=== PATIENT | female | born 1945 | race Caucasian/White ===

== ENCOUNTER 2017-01-25 10:10 | Emergency (ER) | payer SELFPAY ==
[2017-01-25 10:22] VITALS: TEMP 97.8; BMI 16.8
--- NOTE | 2017-01-25 11:24 | PDOC ---
History of Present Illness - General Chief Complaint: Pain Stated Complaint: SOB/ABDOMINAL PAIN Time Seen by Provider: 01/25/17 11:10 - History of Present Illness Initial Comments: 01/25/17 11:33 71 yo F with h/o HTN, HLD, and hypothyroidism who presents with abdominal pain. Daughter at bedside to assist in report. Patient reports ongoing epigastric/ substernal pain with radiation to periumbilical region for the past month. Pain occurring intermittently and lasting for minutes. States that abdominal pain asx. with transient episodes of lightheadedness, without LOC. Also endorses left sided chest pain/pressure for 2 months with associated left arm weakness occurring intermittently. Pain with no identifiable triggers. Complains of decreased appetite, 20 Ib wt. loss in two months, and nausea. Denies F/C, dysuria, hematuria, diarrhea, BPR. Recently returns from [facility] after 6 months on (12/26/16). Daughter reports pt. lives in [place] but was caring for her mother. Denies h/o MS, stent, CABG. Denies h/o CVA/TIA. Denies h/ o DVT/PE, malignancy, recent trauma, or recent surgery. Past History - Past Medical History Allergies/Adverse Reactions: Allergies Allergy/AdvReac Type Severity Reaction Status Date / Time No Known Allergies Allergy Verified 01/25/17 10:22 Home Medications: Ambulatory Orders Levothyroxine [Synthroid -] 50 mcg PO DAILY 01/25/17 Lisinopril [Prinivil] 20 mg PO DAILY 01/25/17 COPD: No HTN: Yes Thyroid Disease: Yes Other medical history: GLAUCOMA - Suicide/Smoking/Psychosocial Hx Smoking History: Never smoked Hx Alcohol Use: No Drug/Substance Use Hx: No Substance Use Type: None Review of Systems - Review of Systems Comments:: 01/25/17 11:23 GENERAL/CONSTITUTIONAL: No fever or chills. No weakness. HEAD, EYES, EARS, NOSE AND THROAT: No change in vision. No ear pain or discharge. No sore throat.- CARDIOVASCULAR: + Chest pain and Shortness of Breath RESPIRATORY: No cough, wheezing, or hemoptysis. GASTROINTESTINAL:+ nausea, vomiting, diarrhea or constipation. GENITOURINARY: No dysuria, frequency, or change in urination. MUSCULOSKELETAL: No joint or muscle swelling or pain. No neck or back pain. SKIN: No rash NEUROLOGIC: + lightheadedness. No headache, vertigo, loss of consciousness, or change in strength/sensation. ENDOCRINE: No increased thirst. No abnormal weight change HEMATOLOGIC/LYMPHATIC: No anemia, easy bleeding, or history of blood clots. ALLERGIC/IMMUNOLOGIC: No hives or skin allergy. *Physical Exam - Vital Signs Last Vital Signs Temp Pulse Resp BP Pulse Ox 97.8 F 98 H 20 157/94 100 01/25/17 10:17 01/25/17 10:17 01/25/17 10:17 01/25/17 10:01/25/17 10:17 - Physical Exam Comments: 01/25/17 11:23 GENERAL: Awake, alert, and fully oriented, in no acute distress HEAD: No signs of trauma, normocephalic, atraumatic EYES: PERRLA, EOMI, sclera anicteric, conjunctiva clear ENT: Hearing grossly normal, nares patent, oropharynx clear without exudates. Moist mucosa NECK: Normal ROM, no JVD, or masses LUNGS: No distress, speaks full sentences, clear to auscultation bilaterally HEART: Regular rate and rhythm, normal S1 and S2, no murmurs, rubs or gallops, peripheral pulses normal and equal bilaterally. ABDOMEN: Soft, diffusely and mildly ttp. Normoactive bowel sounds. No guarding , no rebound. No masses. Neg CVA ttp. EXTREMITIES : Normal inspection, Normal range of motion, no edema. No clubbing or cyanosis. NEUROLOGICAL: Cranial nerves II through XII grossly intact. Normal speech, normal gait, no focal sensorimotor deficits SKIN: Warm, Dry, normal turgor, no rashes or lesions noted. ED Treatment Course - LABORATORY CBC & Chemistry Diagram: 01/25/17 12:10 01/25/17 12:10 - RADIOLOGY Radiograph Interpretation: 01/25/17 16:19 CT AP:. No evidence of bowel obstruction or acute diverticulitis. Normal appendix. 2. Prominent rectal wall may be secondary to underdistention, although a nonspecific proctitis cannot be excluded, requiring clinical correlation. 3. Copious stool throughout the colon. Please correlate for constipation. 4. Numerous hypoattenuating lesions throughout the liver the majority of which are too small to characterize, statistically likely to represent multiple hepatic cysts. 5. Moderate distention of the gallbladder may be physiologic. No CT evidence of acute cholecystitis or biliary ductal dilatation. Please correlate clinically. 6. Nonspecific 2.5 x 1.5 cm left adnexal cystic lesion can be assessed to better advantage with nonemergent pelvic sonogram. Medical Decision Making - Medical Decision Making 01/25/17 11:51 71 yo F with h/o HTN, HLD, and hypothyroidism who presents with ongoing and intermittent epigastric/substernal pain with radiation to periumbilical region for the past month. Asx w/ transient episodes of lightheadedness, without LOC. Also endorses left sided chest pain/pressure for 2 months with associated left arm weakness occurring intermittently. Complains of decreased appetite, 20 Ib wt. loss in two months, and nausea. Denies F/C, dysuria, hematuria, diarrhea, BPR. Recently returns from [facility] after 6 months on (12/26/16). Denies h/o MS, stent, CABG. Denies h/o CVA/TIA. Physical exam reveals malnourished appearing and hemodynamically stable. Will evaluate for electrolyte imbalance and possible infection. Also will consider malignancy in setting of recent and rapid wt. loss vs ACS/MS with complaint of chest pain and arm heaviness. ED Course: CBC, CMP, Lipase, Lactate, Trop, BNP UA, EKG, CXR 01/25/17 12:41 EKG: NSR with absent CAMERON, STD, or TWI. WBC: 2.4 with elevated monocyte count on diff. 01/25/17 13:00 CT AP W/CON 01/25/17 13:07 CXR: No acute pathology 01/25/17 16:17 CT AP:. No evidence of bowel obstruction or acute diverticulitis. Copious stool throughout the colon. Please correlate for constipation. Numerous hypoattenuating lesions throughout the liver the majority of which are too small to characterize, statistically likely to represent multiple hepatic cysts. Nonspecific 2.5 x 1.5 cm left adnexal cystic lesion can be assessed to better advantage with nonemergent pelvic sonogram. Patient stable and abdominal pain improved. Patient is currently stable and will discharge with return precautions. Pt. is advised to f/u with PCP for fruther eval for CT findings. CT findings discussed with patient. *DC/Admit/Observation/Transfer Diagnosis at time of Disposition: Constipation Qualifiers: Constipation type: unspecified constipation type Qualified Code(s): K59.00 - Constipation, unspecified - Discharge Dispostion Disposition: HOME Condition at time of disposition: Stable Admit: No - Referrals Referrals: Anton Kern MD [Staff Physician] - - Patient Instructions Printed Discharge Instructions: DI for Constipation Additional Instructions: Please return to the emergency department with any new or worsening symptoms or concerns. Please follow up with primary care doctor within one week. - Post Discharge Activity - Attestations Physician Attestion: 01/25/17 16:22 I attest to the information provided in this note.
--- NOTE | 2017-01-25 11:46 | PDOC ---
Attending Attestation - Resident Resident Name: Kang Orourke - ED Attending Attestation I have performed the following: I have examined & evaluated the patient, The case was reviewed & discussed with the resident, I agree w/resident's findings & plan, Exceptions are as noted - HPI HPI: 01/25/17 11:40 71yo F hx HTN, HLD, and hypothyroidism who presents with epigastric abdominal pain radiating to periumbilical area for 1 month. Abd pain a/w lightheadness.Pt also reports 20lbs weight loss in 2 months. Pt also reports LSCP intemrittently at rest for the last 2 weeks that increasing in frequency. Pt returned from 12/25 after 6 month visit to take care of her ill family members. Denies any focal weakness or numbness, headaches, cough, fevers, chills, dysuria, lower extremity edema. - Physicial Exam PE: 01/25/17 11:51 GENERAL: Awake, alert, and fully oriented, in no acute distress. Very thin, and cachectic. HEAD: No signs of trauma EYES: PERRLA, EOMI, sclera anicteric, conjunctiva clear ENT: Auricles normal inspection, hearing grossly normal, nares patent, oropharynx clear without exudates. Moist mucosa NECK: Normal ROM, supple, no lymphadenopathy, JVD, or masses LUNGS: Breath sounds equal, clear to auscultation bilaterally. No wheezes, and no crackles HEART: Regular rate and rhythm, normal S1 and S2, no murmurs, rubs or gallops ABDOMEN: Soft, +periumbilical ttp, normoactive bowel sounds. No guarding, no rebound. No masses EXTREMITIES: Normal range of motion, no edema. No clubbing or cyanosis. No cords, erythema, or tenderness NEUROLOGICAL: Normal speech, cranial nerves intact, negative pronator drift, 5/ 5 strength in all 4 extremities, normal sensation to light touch in all 4 extremities, normal cerebellar exam, normal gait, normal reflexes and tone SKIN: Warm, Dry, normal turgor, no rashes or lesions noted. - Medical Decision Making 01/25/17 11:55 71-year-old female presents with 1 month of abdominal pain associated with chest pain and unintentional weight loss. Differential is wide and includes but not limited to malignancy versus ACS versus infection vs pancreatitis. Plan: -labs -UA -CTAP -CXR -EKG -reassess 01/25/17 16:32 Labs remarkable for leukopenia, absolute neutrophil count is 600. Otherwise labs unremarkable. UA is negative for infection. CT scan of the abdomen and pelvis with no acute findings however CT does note multiple hypoattenuating lesions on the liver and a ovarian cyst. In the context of a 20 pound unintentional weight loss, the findings on the CT scan were discussed with the patient and her daughter. We advised her to follow up with a primary care doctor as these lesions could be a sign of cancer. The patient currently denies any abdominal pain and feels well. We will provide her with a primary care doctor follow-up for further workup of these lesions. I discussed the physical exam findings, ancillary test results and final diagnoses with the patient. I answered all of the patient's questions. The patient was satisfied with the care received and felt comfortable with the discharge plan and treatment plan. The patient will call their primary care physician within 24 hours to arrange follow-up and will return to the Emergency Department with any new, persistent or worsening symptoms. Heart Score/ECG Review #1 01/25/17 12:20 Twelve-lead EKG was performed and reviewed by me. Normal sinus rhythm, rate 80. Normal axis and intervals. No ST elevations or T-wave inversions.
[2017-01-25 12:17] LABS: BASO % 1.5 % (0-2.0); EOS % 1.5 % (0-4.5); MCH 28.4 pg (25.7-33.7); MCHC 32.2 g/dl (32.0-36.0); MEAN CELL VOLUME 88.3 fl (80-96); MEAN PLT VOLUME 8.8 fl (7.5-11.1); NEUT % 24.8 % (42.8-82.8); PLATELET COUNT 176 K/MM3 (134-434); RDW 13.7 % (11.6-15.6); WHITE BLOOD COUNT 2.4 K/mm3 (4.0-10.0)
[2017-01-25 12:35] LABS: INR 1.1 (0.82-1.09); PROTHROMBIN TIME (PATIENT) 12.4 SEC (9.98-11.88)
[2017-01-25 12:48] LABS: ANION GAP 3 (8-16); BILIRUBIN,TOTAL 0.6 mg/dL (0.2-1.0); CALCIUM 9.4 mg/dL (8.5-10.1); CO2 29 mmol/L (21-32); CREATININE 0.6 mg/dL (0.55-1.02); GLUCOSE,RANDOM 88 mg/dL (74-106); SGOT/AST 19 U/L (15-37); SGPT/ALT 21 U/L (12-78)
[2017-01-25 12:50] LABS: CPK 60 IU/L (26-192); TROPONIN I < 0.02 ng/ml (0.00-0.05)
[2017-01-25 12:50] LABS: ALK PHOS 51 U/L (45-117); TOT PROT 7.5 g/dl (6.4-8.2)
[2017-01-25 13:27] LABS: URINE APPEARANCE CLEAR; URINE BILIRUBIN NEGATIVE (NEGATIVE); URINE BLOOD NEGATIVE (NEGATIVE); URINE COLOR STRAW; URINE GLUCOSE (UA) NEGATIVE (NEGATIVE); URINE KETONE NEGATIVE (NEGATIVE); URINE LEUK ESTERASE NEGATIVE (NEGATIVE); URINE NITRITE NEGATIVE (NEGATIVE); URINE PROTEIN NEGATIVE (NEGATIVE); URINE UROBILINOGEN NEGATIVE mg/dL (0.2-1.0)
[2017-01-25 16:10] VITALS: BP 140/87; PULSE 82
[2017-01-25 20:27] LABS: URINE LEUK ESTERASE Negative (NEGATIVE)
--- NOTE | 2017-01-27 01:34 | EKG ---
Test Reason : Blood Pressure : / mmHG Vent. Rate : 080 BPM Atrial Rate : 080 BPM P-R Int : 150 ms QRS Dur : 088 ms QT Int : 360 ms P-R-T Axes : 076 070 055 degrees QTc Int : 415 ms NORMAL SINUS RHYTHM NORMAL ECG NO PREVIOUS ECGS AVAILABLE Confirmed by CARLOS A CANNON MD ([id number]) on 01/27/2017 1:33:52 AM Referred By: Confirmed By:CARLOS A CANNON MD
== END 2017-01-25 16:30 | disposition home or self-care (01) ==
LOC: JER 10:10
DX: K59.00 Constipation, unspecified (principal); I10 Essential (primary) hypertension; E78.00 Pure hypercholesterolemia, unspecified; E03.9 Hypothyroidism, unspecified; R63.4 Abnormal weight loss; Z68.1 Body mass index [BMI] 19.9 or less, adult
CPT/HCPCS: 36415; 71010-TC; 74177-TC; 80053; 81003; 82550; 83605; 83690; 83880; 84484; 85025; 85610; 93005; 93010; 99284-25

== ENCOUNTER 2019-08-27 19:35 | Inpatient (IN) | payer OTHER ==
--- NOTE | 2019-08-27 19:42 | PDOC ---
Rapid Medical Evaluation Time Seen by Provider: 08/27/19 19:39 Medical Evaluation: Allergies Allergy/AdvReac Type Severity Reaction Status Date / Time No Known Allergies Allergy Verified 07/23/19 16:30 08/27/19 19:40 I have performed a brief in-person evaluation of this patient. The patient presents with a chief complaint of: Continued FTT, c/o anorexia, weakness and abd discomfort x 1 month. H/o HTN, HLD, dementia, CVA. Was recently admitted for AMS and tx for UTI per daughter. During admission, had unremarkable ECHO/brain MRI/MRA and carotid dopplers per notes. Daughter also states a possible tick was removed from pt's leg few days ago after being in place for ? 3 weeks. No rash Pertinent physical exam findings:NAD, stable I have ordered the following:labs including lyme serology The patient will proceed to the ED for further evaluation. 08/27/19 19:45 Discharge Disposition - Diagnosis FTT (failure to thrive) in adult - Referrals - Patient Instructions - Post Discharge Activity
--- NOTE | 2019-08-27 19:54 | PDOC ---
History of Present Illness - General Chief Complaint: Pain Stated Complaint: TICK BITE/ FAILURE TO THRIVE Time Seen by Provider: 08/27/19 19:39 - History of Present Illness Initial Comments: 74 YOF h/o HTN, dementia, and hypothyroidism presents with ams and failure to thrive of 2 weeks duration in the context of possible recent lyme exposure. Per patients daughter, patient was admitted for ams in the context of UTI in early july. She recovered but it took 2 weeks to return to baseline. One week ago patient began to become altered again as manifested by speaking less, eating less, appearing somnolent as well as reporting some nausea and abdominal pain. Approximately 3 weeks ago patients daughter observed new "mole" on patients inner thigh which one 3 days ago, on closer inspection was revealed to be a tick. Yesterday patient was initiated on course of doxycycline to treat possible lyme infection. In the context of a suspected lyme infection and the patients behavioral changes the daughter decided to bring her to the ED for evaluation. Patient denies CP, SOB, V/D, fever or chills. Past History - Medical History Allergies/Adverse Reactions: Allergies Allergy/AdvReac Type Severity Reaction Status Date / Time No Known Allergies Allergy Verified 07/23/19 16:30 Home Medications: Ambulatory Orders Levothyroxine [Synthroid -] 50 mcg PO DAILY 01/25/17 Clopidogrel Bisulfate [Plavix] 75 mg PO DAILY 07/23/19 Memantine HCl 10 mg PO DAILY 07/23/19 Pregabalin 75 mg PO DAILY PRN 07/23/19 Losartan Potassium 50 mg PO DAILY 07/24/19 Aspirin [ASA -] 81 mg PO DAILY #30 tab.chew 07/26/19 Atorvastatin Ca [Lipitor] 80 mg PO HS #30 tablet 07/26/19 Cefuroxime Axetil [Ceftin -] 250 mg PO BID #5 tablet 07/26/19 Donepezil HCl [Aricept] 5 mg PO DAILY 08/27/19 COPD: No HTN: Yes Thyroid Disease: Yes - Psycho-Social/Smoking History Smoking History: Never smoked Have you smoked in the past 12 months: No - Substance Abuse Hx (Audit-C & DAST Scrn) How often the patient has a drink containing alcohol: Never Score: In Men: 4 or > Positive; In Women: 3 or > Positive: 0 Screen Result (Pos requires Nsg. Audit-10AR): Negative Review of Systems - Review of Systems Is the patient limited Bhutanese proficient: Yes Constitutional: Yes: See HPI HEENTM: Yes: See HPI Respiratory: Yes: See HPI Cardiac (ROS): Yes: See HPI ABD/GI: Yes: See HPI : Yes: See HPI Musculoskeletal: Yes: See HPI Integumentary: Yes: See HPI Neurological: Yes: See HPI Endocrine: Yes: See HPI Hematologic/Lymphatic: Yes: See HPI *Physical Exam - Vital Signs Last Vital Signs Temp Pulse Resp BP Pulse Ox 98.7 F 73 20 168/91 99 08/27/19 19:40 08/27/19 19:40 08/27/19 19:40 08/27/19 19:40 08/27/19 19:40 - Physical Exam General Appearance: Yes: Cachetic, Thin Respiratory/Chest: positive: Lungs Clear, Normal Breath Sounds Cardiovascular: positive: Regular Rhythm, Regular Rate, S1, S2 Gastrointestinal/Abdominal: positive: Normal Bowel Sounds, Flat, Soft ED Treatment Course - LABORATORY CBC & Chemistry Diagram: 08/27/19 21:13 08/27/19 21:13 Medical Decision Making - Medical Decision Making 74 YOF h/o HTN, dementia, and hypothyroidism presents with ams and failure to thrive of 2 weeks duration in the context of possible recent lyme exposure. Per patients daughter, patient was admitted for ams in the context of UTI in early july. She recovered but it took 2 weeks to return to baseline. One week ago patient began to become altered again as manifested by speaking less, eating less, appearing somnolent as well as reporting some nausea and abdominal pain. Approximately 3 weeks ago patients daughter observed new "mole" on patients inner thigh which one 3 days ago, on closer inspection was revealed to be a tick. Yesterday patient was initiated on course of doxycycline to treat possible lyme infection. In the context of a suspected lyme infection and the patients behavioral changes the daughter decided to bring her to the ED for evaluation. Patient denies CP, SOB, V/D, fever or chills. Patients vitals were stable on arrival, physical exam was unremarkable. ddx includes but is not limited to: UTI, NPH, CVA, failure to thrive, lymes dise ase. plan: CT head w/o contrast, CT abdomen and pelvis without contrast, CXR, CBC, CMP, UA/UC, lyme serology, TSH. Reasses: labs wnl, CXR, CT head, CT abdomen and pelvis wnl. dispo: admit patient for AMS Discharge - Discharge Information Problems reviewed: Yes Clinical Impression/Diagnosis: FTT (failure to thrive) in adult - Admission Yes - Follow up/Referral - Patient Discharge Instructions - Post Discharge Activity
[2019-08-27 20:56] LABS: EPI CELLS 11 /uL (0-25.1); HYALINE CASTS 1 /uL (0-3.1); PH,URINE 7.5 (5.0-8.0); URINE APPEARANCE CLEAR; URINE BACTERIA 54 /uL (0-1359); URINE BILIRUBIN NEGATIVE (NEGATIVE); URINE COLOR YELLOW; URINE GLUCOSE (UA) NEGATIVE (NEGATIVE); URINE KETONE NEGATIVE (NEGATIVE); URINE LEUK ESTERASE TRACE (NEGATIVE); URINE NITRITE NEGATIVE (NEGATIVE); URINE PROTEIN NEGATIVE (NEGATIVE); URINE RBC 46 /uL (0-23.9); URINE WBC 17 /uL (0-25.8)
--- NOTE | 2019-08-27 21:43 | PDOC ---
Documentation entered by Mely Parks SCRIBE, acting as scribe for Steven Fuentes MD. Steven Fuentes MD: This documentation has been prepared by the Kasey yoon Sydney, SCRIBE, under my direction and personally reviewed by me in its entirety. I confirm that the documentation accurately reflects all work, treatment, procedures, and medical decision making performed by me. Attending Attestation - Resident Resident Name: JavierCullen - ED Attending Attestation I have performed the following: I have examined & evaluated the patient, The case was reviewed & discussed with the resident, I agree w/resident's findings & plan, Exceptions are as noted - HPI HPI: 08/27/19 20:31 Patient is a 74 year old female with a significant past medical history of HTN, dementia who presents to the ED with two weeks of progressively worsening weakness and lethargy. As per the patient's daughter, she was seen for similar symptoms in July, was admitted into the hospital for a UTI, and discharged after four days. Patients daughter notes that the patient improved but never fully returned to her baseline. Patient had been going to physical therapy, which also seemed to improved her mental status. Within the last two weeks, she has not been answering questions, talking, or eating normally. She has also complained intermittently of abdominal pain. Not having as many bowel movements. Pt's family also reports they found a tick on the patient's leg. Allergies: NKDA - Physicial Exam PE: 08/27/19 21:44 See resident exam - Medical Decision Making 08/27/19 21:44 74 F with weakness, lethargy. Will evaluate for infectious process, as pt had UTI previously when she presented with similar symptoms. Will also check for Lyme given recent tick bite. - Labs, trop - CXR, UA - CT head 08/28/19 00:01 UA with likely UTI Labs otherwise unremarkable CXR and CTs wnl Will admit for UTI + AMS Discharge - Discharge Information Problems reviewed: Yes Clinical Impression/Diagnosis: FTT (failure to thrive) in adult - Follow up/Referral - Patient Discharge Instructions - Post Discharge Activity
[2019-08-27 21:52] LABS: BASO % 0.9 % (0-2.0); EOS % 0.8 % (0-4.5); HEMATOCRIT 43.2 % (32.4-45.2); HEMOGLOBIN 14.3 GM/dL (10.7-15.3); LYMPH % 43.8 % (8-40); MCH 29.9 pg (25.7-33.7); MCHC 33.1 g/dl (32.0-36.0); MEAN CELL VOLUME 90.2 fl (80-96); MEAN PLT VOLUME 9.5 fl (7.5-11.1); MONO % 7.2 % (3.8-10.2); NEUT % 47.3 % (42.8-82.8); PLATELET COUNT 217 K/MM3 (134-434); RBC 4.79 M/mm3 (3.60-5.2); RDW 13.1 % (11.6-15.6); WHITE BLOOD COUNT 3.3 K/mm3 (4.0-10.0)
[2019-08-27] MEDS ORDERED: CEFTRIAXONE 1 GM in DEXTROSE 5%-WATER - 50 ML IVPB ONE (22:18)
[2019-08-27 22:30] LABS: ALBUMIN 4.7 g/dl (3.4-5.0); ALK PHOS 63 U/L (45-117); ANION GAP 8 MMOL/L (8-16); BILIRUBIN,TOTAL 0.7 mg/dL (0.2-1); BLOOD UREA NITROGEN 7.5 mg/dL (7-18); CALCIUM 10.4 mg/dL (8.5-10.1); CHLORIDE 102 mmol/L (98-107); CO2 29 mmol/L (21-32); CREATININE 0.8 mg/dL (0.55-1.3); GLUCOSE,RANDOM 132 mg/dL (74-106); LIPASE 152 U/L (73-393); POTASSIUM 3.9 mmol/L (3.5-5.1); SGOT/AST 19 U/L (15-37); SGPT/ALT 24 U/L (13-61); SODIUM 138 mmol/L (136-145); TOT PROT 8.9 g/dl (6.4-8.2)
--- NOTE | 2019-08-27 23:25 | PN ---
Teaching Attending Note Name of Resident: Yobani Negron ATTENDING PHYSICIAN STATEMENT I saw and evaluated the patient. I reviewed the resident's note and discussed the case with the resident. I agree with the resident's findings and plan as documented. SUBJECTIVE: Patient is a 74 year old woman with a PMH of HTN, Dementia and Hypothyroidism w ho presents with AMS and failure to thrive of 2 weeks duration in the context of possible recent lyme exposure. Per patients daughter, patient was admitted for AMS and UTI in early July 2019. She recovered but it took 2 weeks to return to baseline. One week ago patient began to become altered again as manifested by speaking less, eating less, appearing somnolent as well as reporting some nausea and abdominal pain. Patient's daughter recently observed a new lesion on patient's inner thigh which on closer inspection was revealed to be a tick. Yesterday patient was initiated on course of doxycycline to treat possible Lyme infection. Patient denies chest pain, shortness of breath, abdominal pain, headache, palpitations, dizziness, fever, chills, nausea, vomiting, diarrhea, constipation, dysuria, frequency, urgency, melena, hematochezia or hematuria. Denies alcohol, tobacco or illicit drug use. No sick contacts or recent travels. Family history is unremarkable. OBJECTIVE: Somnolent but arousable Vital Signs Period Temp Pulse Resp BP Sys/Montes Pulse Ox Last 24 Hr 98.7 F 73-78 18-20 167-168/78-91 99-99 HEENT: No Jaundice, eye redness or discharge, PERRLA, EOMI. Normocephalic, atraumatic. External ears are normal and hearing is grossly intact. No nasal discharge. Neck: Supple, nontender. No palpable adenopathy or thyromegaly. No JVD Chest: Good effort. Clear to auscultation and percussion. Heart: Regular. No S3, rub or murmur Abdomen: Not distended, soft, nontender and no HSM. No rebound or guarding. Normal bowel sounds. Ext: Peripheral pulses intact. No leg edema. Skin: Warm and dry. No petechiae, rash or ecchymosis. Neuro: Somnolent but arousable. Oriented to person. CN 2-12 grossly intact. Sensation grossly intact in all four extremities and DTR are symmetric. Psych: Unable to assess. Home Medications Medication Instructions Recorded Levothyroxine [Synthroid -] 50 mcg PO DAILY 01/25/17 Clopidogrel Bisulfate [Plavix] 75 mg PO DAILY 07/23/19 Memantine HCl 10 mg PO DAILY 07/23/19 Pregabalin 75 mg PO DAILY PRN 07/23/19 Losartan Potassium 50 mg PO DAILY 07/24/19 Aspirin [ASA -] 81 mg PO DAILY #30 tab.chew 07/26/19 Atorvastatin Ca [Lipitor] 80 mg PO HS #30 tablet 07/26/19 Cefuroxime Axetil [Ceftin -] 250 mg PO BID #5 tablet 07/26/19 Donepezil HCl [Aricept] 5 mg PO DAILY 08/27/19 Abnormal Lab Results 08/27/19 08/27/19 21:13 21:13 WBC 3.3 L Lymphocytes % 43.8 H Random Glucose 132 H Calcium 10.4 H Total Protein 8.9 H Current Medications Generic Name Dose Route Start Last Admin Trade Name Freq PRN Reason Stop Dose Admin Acetaminophen 650 mg 08/28/19 01:40 Tylenol - PO Q4H PRN PAIN LEVEL 1 - 3 Aspirin 81 mg 08/28/19 10:00 Asa - PO DAILY VALERIY Atorvastatin Calcium 80 mg 08/28/19 22:00 Lipitor - PO HS VALERIY Donepezil HCl 5 mg 08/28/19 10:00 Aricept - PO DAILY VALERIY Enoxaparin Sodium 40 mg 08/28/19 10:00 Lovenox - SQ DAILY VALERIY Sodium Chloride 1,000 mls @ 83 mls/hr 08/28/19 01:45 08/28/19 02:14 Normal Saline - IV 83 mls/hr ASDIR VALERIY Administration Doxycycline Hyclate 100 mg/ 100 mls @ 100 mls/hr 08/28/19 10:00 Dextrose IVPB BID VALERIY Levothyroxine Sodium 50 mcg 08/28/19 10:00 Synthroid - PO DAILY VALERIY Losartan Potassium 50 mg 08/28/19 10:00 Cozaar - PO DAILY VALERIY Pantoprazole Sodium 40 mg 08/28/19 10:00 Protonix - PO DAILY VALERIY ASSESSMENT AND PLAN: 1. Altered mental status/Dementia/Rule out Lyme disease - Declining cognitive function associated with dementia may explain her symptoms. Head CT, CT abdomen/pelvis and CXR didnot reveal any acute abnormality. Lyme studies have been sent and urinalysis shows hematuria, similar to urine findings during her last admission. Urine culture grew E.coli during her last admission. She was e valuated by Neurology for declining cognitive function which has been attributed to dementia. Recent work up during the last admission including speech and swallow evaluation, carotid doppler, brain MRI, head CT, TSH, and vitamin b12/folate levels were normal. COVID-19 and Syphilis tests were negative. Will continue Doxycycline, treat with IV Ceftriaxone and reconsult Neurology and ID. Will hydrate gently with IV NS, do neurochecks and implement seizure, fall and aspiration precautions. Viral testing for COVID-19 ordered and patient placed on airborne, droplet and contact isolation. EKG shows NSR at 71/minute and QTc [address]-T wave changes. Initial troponin is negative. Will continue comprehensive care for all of patients comorbid conditions. 2. Hypertension Will restart suitable outpatient antihypertensive drugs when clinically appropriate. Subsequently, will revise regimen to ensure [id number] excellent BP control. Patient counseled on the injurious effects of uncontrolled hypertension. Nonpharmacologic measures to control hypertension like weight loss, salt restriction and exercise stressed. Importance of adherence to treatment regimen and attainment of normotension emphasized. 3. DVT prophylaxis - Lovenox 40 mg SQ q 24 hours. 4. Advance directives - Full code
[2019-08-27] MEDS ORDERED: CEFTRIAXONE 1 GM/50 ML BAG ONE (23:43)
[2019-08-28] MEDS: SODIUM CHLORIDE 1,000 ML IV SCH (02:14)
[2019-08-28] MEDS ORDERED: PANTOPRAZOLE 40 MG TABLET ONE (06:28)
[2019-08-28] MEDS ORDERED: LEVOTHYROXINE NA 25 MCG TABLET (FP) ONE (06:28)
[2019-08-28] MEDS: PANTOPRAZOLE 40 MG TABLET PO SCH (06:37)
[2019-08-28] MEDS: LEVOTHYROXINE NA 50 MCG TABLET (FP) PO SCH (06:37)
[2019-08-28 07:16] LABS: HEMOGLOBIN 11.8 GM/dL (10.7-15.3); MCH 29.5 pg (25.7-33.7); MCHC 32.8 g/dl (32.0-36.0); MEAN CELL VOLUME 89.9 fl (80-96); MEAN PLT VOLUME 9.2 fl (7.5-11.1); PLATELET COUNT 182 K/MM3 (134-434); WHITE BLOOD COUNT 3.6 K/mm3 (4.0-10.0)
--- NOTE | 2019-08-28 07:36 | HP ---
CHIEF COMPLAINT: Severe fatigue PCP: HISTORY OF PRESENT ILLNESS: 74 year old female patient with past medical history that includes HTN, HLD, Hypothyroidism, and Dementia, who presented to the ED with severe fatigue and weakness and severe depression. A couple weeks ago, the patient returned from outside the country, where she had visited a family member with his own severe diseases, and since then the patient has been expressing a desire to pass away. The patient's symptoms have worsened to the point that the patient does not really talk or eat. The patient's daughter also found a tick on the patient's leg recently. The patient was given Doxycyline yesterday because of the tick that was found, and the patient has taken 1 dose so far of the Doxycycline. Recent Travel: PAST MEDICAL HISTORY: HTN, HLD, Hypothyroidism, Dementia PAST SURGICAL HISTORY: Social History: Smoking: Denies Alcohol: Denies Drugs: Denies Allergies No Known Allergies Allergy (Verified 07/23/19 16:30) HOME MEDICATIONS: Home Medications Medication Instructions Recorded Levothyroxine [Synthroid -] 50 mcg PO DAILY 01/25/17 Losartan Potassium 50 mg PO DAILY 07/24/19 Aspirin [ASA -] 81 mg PO DAILY #30 tab.chew 07/26/19 Atorvastatin Ca [Lipitor] 80 mg PO HS #30 tablet 07/26/19 Donepezil HCl [Aricept] 5 mg PO DAILY 08/27/19 REVIEW OF SYSTEMS CONSTITUTIONAL: generalized weakness, loss of appetite, fatigue Absent: CARDIOVASCULAR: Absent: chest pain RESPIRATORY: Absent: shortness of breath GASTROINTESTINAL: constipation Absent: nausea, vomiting, diarrhea HEMATOLOGIC/IMMUNOLOGIC: recent UTI in July Absent: ENDOCRINE: The patient feels cold. The patient has no appetite. Absent: PSYCHIATRIC: Depression Absent: suicidal or homicidal ideation. PHYSICAL EXAMINATION Vital Signs - 24 hr 08/27/19 08/27/19 08/28/19 19:40 20:46 02:15 Temperature 98.7 F Pulse Rate 73 Pulse Rate [ 78 66 Apical] Respiratory 20 18 20 Rate Blood Pressure 168/91 Blood Pressure 167/78 161/67 [Left Arm] O2 Sat by Pulse 99 99 100 Oximetry (%) 08/28/19 06:31 Temperature 98.5 F Pulse Rate Pulse Rate [ 70 Apical] Respiratory 15 Rate Blood Pressure Blood Pressure 164/83 [Left Arm] O2 Sat by Pulse 99 Oximetry (%) GENERAL: Awake, alert, and fully oriented, lying in bed looking depressed and tired/fatigued. HEAD: Normal with no signs of trauma. EYES: Extraocular movements intact. No lid lag. EARS, NOSE, THROAT: Ears normal, nares patent, oropharynx clear without exudates. Moist mucous membranes. NECK: Normal range of motion, supple without lymphadenopathy, JVD, or masses. LUNGS: Breath sounds equal, clear to auscultation bilaterally. No wheezes, and no crackles. No accessory muscle use. HEART: Regular rate and rhythm, normal S1 and S2 without murmur, rub or gallop. ABDOMEN: Soft, nontender, not distended, normoactive bowel sounds, no guarding, no rebound, no masses. MUSCULOSKELETAL: Normal range of motion at all joints. No bony deformities or tenderness. UPPER EXTREMITIES: 2+ pulses, warm, well-perfused. No cyanosis. No clubbing. No peripheral edema. LOWER EXTREMITIES: 2+ pulses, warm, well-perfused. No calf tenderness. No peripheral edema. NEUROLOGICAL: Normal speech. Normal gait. PSYCHIATRIC: Cooperative. Good eye contact. Appropriate mood and affect. SKIN: Warm, dry, normal turgor, no rashes or lesions noted, normal capillary refill. Laboratory Results - last 24 hr 08/27/19 08/27/19 08/27/19 20:30 21:13 21:13 WBC 3.3 L RBC 4.79 Hgb 14.3 Hct 43.2 D MCV 90.2 MCH 29.9 MCHC 33.1 RDW 13.1 Plt Count 217 MPV 9.5 Absolute Neuts (auto) 1.6 Neutrophils % 47.3 Lymphocytes % 43.8 H Monocytes % 7.2 Eosinophils % 0.8 Basophils % 0.9 Nucleated RBC % 0 Sodium 138 Potassium 3.9 Chloride 102 Carbon Dioxide 29 Anion Gap 8 BUN 7.5 Creatinine 0.8 Est GFR (CKD-EPI)AfAm 83.59 Est GFR (CKD-EPI)NonAf 72.12 Random Glucose 132 H Calcium 10.4 H Total Bilirubin 0.7 AST 19 ALT 24 Alkaline Phosphatase 63 Creatine Kinase 58 Troponin I < 0.02 Total Protein 8.9 H Albumin 4.7 Lipase 152 TSH Urine Color Yellow Urine Appearance Clear Urine pH 7.5 Ur Specific [place] 1.014 Urine Protein Negative Urine Glucose (UA) Negative Urine Ketones Negative Urine Blood Trace Urine Nitrite Negative Urine Bilirubin Negative Urine Urobilinogen 1.0 Ur Leukocyte Esterase Trace Urine WBC (Auto) 17 Urine RBC (Auto) 46 Urine Casts (Auto) 1 U Epithel Cells (Auto) 11 Urine Bacteria (Auto) 54 08/27/19 21:13 WBC RBC Hgb Hct MCV MCH MCHC RDW Plt Count MPV Absolute Neuts (auto) Neutrophils % Lymphocytes % Monocytes % Eosinophils % Basophils % Nucleated RBC % Sodium Potassium Chloride Carbon Dioxide Anion Gap BUN Creatinine Est GFR (CKD-EPI)AfAm Est GFR (CKD-EPI)NonAf Random Glucose Calcium Total Bilirubin AST ALT Alkaline Phosphatase Creatine Kinase Cancelled Troponin I Cancelled Total Protein Albumin Lipase TSH Cancelled Urine Color Urine Appearance Urine pH Ur Specific [place] Urine Protein Urine Glucose (UA) Urine Ketones Urine Blood Urine Nitrite Urine Bilirubin Urine Urobilinogen Ur Leukocyte Esterase Urine WBC (Auto) Urine RBC (Auto) Urine Casts (Auto) U Epithel Cells (Auto) Urine Bacteria (Auto) ASSESSMENT/PLAN: 74 year old female patient with past medical history that includes HTN, HLD, Hypothyroidism, and Dementia, who presented to the ED with severe fatigue and weakness and severe depression. 1. Failure to thrive secondary to depression vs. UTI vs. Lyme disease vs. hypothyroidism - The patient has symptoms of severe depression ever since her trip overseas. - The patient's urinalysis is negative for infection - The patient is taking Doxycyline for Lyme disease and a Lyme screen has been ordered. - TSH is pending - Total protein is mildly high at 8.9 and albumin is normal at 4.7, which are positive signs in terms of the patient's nutritional status. - Neurology consult 2. Hypothyroidism - The patient is taking Levothyroxine 3. HTN - The patient's blood pressure has been high at 164/83, with otherwise stable vital signs. - The patient is taking Losartan to avoid high blood pressure, since it is a risk factor for things like stroke and blood clots. 4. HLD - The patient is taking Atorvastatin 5. Dementia - The patient is taking Donepezil DVT PPx - Lovenox 40mg Sq FULL CODE Visit type - Emergency Visit Emergency Visit: Yes ED Registration Date: 08/27/19 Care time: The patient presented to the Emergency Department on the above date and was hospitalized for further evaluation of their emergent condition. - New Patient This patient is new to me today: Yes Date on this admission: 08/28/19 - Critical Care Critical Care patient: No ATTENDING PHYSICIAN STATEMENT I saw and evaluated the patient. I reviewed the resident's note and discussed the case with the resident. I agree with the resident's findings and plan as documented. SUBJECTIVE: OBJECTIVE: ASSESSMENT AND PLAN:
[2019-08-28 07:47] LABS: BLOOD UREA NITROGEN 5.8 mg/dL (7-18); CALCIUM 9.3 mg/dL (8.5-10.1); CREATININE 0.6 mg/dL (0.55-1.3); MAGNESIUM 2.2 mg/dL (1.8-2.4); PHOSPHOROUS 3.3 mg/dL (2.5-4.9); POTASSIUM 3.7 mmol/L (3.5-5.1)
[2019-08-28] MEDS ORDERED: ACETAMINOPHEN 325 MG TABLET (FP) ONE (08:37)
[2019-08-28] MEDS: ACETAMINOPHEN 325 MG TABLET (FP) PO PRN (08:53)
--- NOTE | 2019-08-28 09:18 | PN ---
Teaching Attending Note Name of Resident: Rachana Melgoza ATTENDING PHYSICIAN STATEMENT I saw and evaluated the patient. I reviewed the resident's note and discussed the case with the resident. I agree with the resident's findings and plan as documented. SUBJECTIVE: Patient is feeling down since her sister , as per daughter, patient is not eating and feels depressed. OBJECTIVE: Vital Signs Temperature 98.5 F 08/28/19 08:52 Pulse Rate 70 08/28/19 06:31 Respiratory Rate 15 08/28/19 06:31 Blood Pressure 164/83 08/28/19 06:31 O2 Sat by Pulse Oximetry (%) 99 08/28/19 06:31 PE: per resident's note removed a piece of tick remanent from right upper thigh. CBCD WBC 3.6 K/mm3 (4.0-10.0) L 08/28/19 06:08 RBC 4.00 M/mm3 (3.60-5.2) 08/28/19 06:08 Hgb 11.8 GM/dL (10.7-15.3) 08/28/19 06:08 Hct 36.0 % (32.4-45.2) D 08/28/19 06:08 MCV 89.9 fl (80-96) 08/28/19 06:08 MCHC 32.8 g/dl (32.0-36.0) 08/28/19 06:08 RDW 13.0 % (11.6-15.6) 08/28/19 06:08 Plt Count 182 K/MM3 (134-434) 08/28/19 06:08 MPV 9.2 fl (7.5-11.1) 08/28/19 06:08 CMP Sodium 143 mmol/L (136-145) 08/28/19 06:08 Potassium 3.7 mmol/L (3.5-5.1) 08/28/19 06:08 Chloride 109 mmol/L (98-107) H 08/28/19 06:08 Carbon Dioxide 27 mmol/L (21-32) 08/28/19 06:08 Anion Gap 6 MMOL/L (8-16) L 08/28/19 06:08 BUN 5.8 mg/dL (7-18) L 08/28/19 06:08 Creatinine 0.6 mg/dL (0.55-1.3) 08/28/19 06:08 Random Glucose 90 mg/dL (74-106) 08/28/19 06:08 Calcium 9.3 mg/dL (8.5-10.1) 08/28/19 06:08 Total Bilirubin 0.7 mg/dL (0.2-1) 08/27/19 21:13 AST 19 U/L (15-37) 08/27/19 21:13 ALT 24 U/L (13-61) 08/27/19 21:13 Alkaline Phosphatase 63 U/L (45-117) 08/27/19 21:13 Total Protein 8.9 g/dl (6.4-8.2) H 08/27/19 21:13 Albumin 4.7 g/dl (3.4-5.0) 08/27/19 21:13 CARDIAC ENZYMES Creatine Kinase 58 U/L (26-192) 08/27/19 21:13 Creatine Kinase Cancelled 08/27/19 21:13 Troponin I < 0.02 ng/ml (0.00-0.05) 08/27/19 21:13 Troponin I Cancelled 08/27/19 21:13 Current Medications Generic Name Dose Route Start Last Admin Trade Name Freq PRN Reason Stop Dose Admin Acetaminophen 650 mg 08/28/19 01:40 08/28/19 08:53 Tylenol - PO 650 mg Q4H PRN Administration PAIN LEVEL 1 - 3 Aspirin 81 mg 08/28/19 10:00 Asa - PO DAILY VALERIY Atorvastatin Calcium 80 mg 08/28/19 22:00 Lipitor - PO HS VALERIY Donepezil HCl 5 mg 08/28/19 22:00 Aricept - PO HS VALERIY Enoxaparin Sodium 40 mg 08/28/19 10:00 Lovenox - SQ DAILY VALERIY Sodium Chloride 1,000 mls @ 83 mls/hr 08/28/19 01:45 08/28/19 02:14 Normal Saline - IV 83 mls/hr ASDIR VALERIY Administration Doxycycline Hyclate 100 mg/ 100 mls @ 100 mls/hr 08/28/19 10:00 Dextrose IVPB BID VALERIY Levothyroxine Sodium 50 mcg 08/28/19 07:00 08/28/19 06:37 Synthroid - PO 50 mcg ACBK VALERIY Administration Losartan Potassium 50 mg 08/28/19 10:00 Cozaar - PO DAILY VALERIY Pantoprazole Sodium 40 mg 08/28/19 07:00 08/28/19 06:37 Protonix - PO 40 mg ACBK VALERIY Administration Home Medications Medication Instructions Recorded Levothyroxine [Synthroid -] 50 mcg PO DAILY 01/25/17 Losartan Potassium 50 mg PO DAILY 07/24/19 Aspirin [ASA -] 81 mg PO DAILY #30 tab.chew 07/26/19 Atorvastatin Ca [Lipitor] 80 mg PO HS #30 tablet 07/26/19 Donepezil HCl [Aricept] 5 mg PO DAILY 08/27/19 Urine Test Results Urine Color Yellow 08/27/19 20:30 Urine Appearance Clear 08/27/19 20:30 Urine pH 7.5 (5.0-8.0) 08/27/19 20:30 Ur Specific [place] 1.014 (1.010-1.035) 08/27/19 20:30 Urine Protein Negative (NEGATIVE) 08/27/19 20:30 Urine Glucose (UA) Negative (NEGATIVE) 08/27/19 20:30 Urine Ketones Negative (NEGATIVE) 08/27/19 20:30 Urine Blood Trace (NEGATIVE) 08/27/19 20:30 Urine Nitrite Negative (NEGATIVE) 08/27/19 20:30 Urine Bilirubin Negative (NEGATIVE) 08/27/19 20:30 Ur Leukocyte Esterase Trace (NEGATIVE) 08/27/19 20:30 ASSESSMENT AND PLAN: This patient is a 74yof with PMhx of HTN, HLD, Hypothyroidism, and Dementia, who presented to the ED with severe fatigue and weakness and severe depression. # Failure to thrive secondary to depression , possible hypothyroidism/normal grief due to her sister's # Hypothyroidism: continue Levothyroxine # HTN: continue losartan # HLD: continue lipitor # Dementia: c ontinue aricept #+ tick on her skin : for unknown time , as per daughter over a week, discussed with Dr Torres to continue doxy for 21 days DVT PPx - Lovenox 40mg Sq
[2019-08-28] MEDS: ENOXAPARIN NA (PORCINE) 40 MG/0.4 ML DISP.SYRIN SQ SCH (11:10)
[2019-08-28] MEDS ORDERED: ENOXAPARIN NA (PORCINE) 40 MG/0.4 ML DISP.SYRIN SQ ONE ×2 (11:11→11:16)
[2019-08-28] MEDS ORDERED: ASPIRIN 81 MG CHEWABLE TABLETS ONE (11:11)
[2019-08-28] MEDS ORDERED: LOSARTAN POTASSIUM 50 MG TABLET (FP) ONE (11:11)
[2019-08-28] MEDS ORDERED: DOXYCYCLINE HYCLATE 100 MG VIAL ONE ×2 (11:11→22:51)
[2019-08-28] MEDS: DOXYCYCLINE INJECTION 100 MG in DEXTROSE 5%-WATER 100 ML IVPB SCH ×2 (11:20→22:53)
[2019-08-28] MEDS: ASPIRIN 81 MG CHEWABLE TABLETS PO SCH (11:46)
[2019-08-28] MEDS: LOSARTAN POTASSIUM 50 MG TABLET (FP) PO SCH (11:46)
--- NOTE | 2019-08-28 12:10 | PN ---
Physical Exam: SUBJECTIVE: Patient seen and examined at bedside. pt states she keeps getting nauseous when she tries to eat. denies headache, CP, palpitations, dizziness. OBJECTIVE: Vital Signs Period Temp Pulse Resp BP Sys/Montes Pulse Ox Last 24 Hr 98.5 F-98.7 F 66-78 15-20 161-168/67-91 99-100 GENERAL: The patient is awake, alert, and oriented, in no acute distress. HEAD: Normal with no signs of trauma. ENT: Ears normal, oropharynx clear without exudates, moist mucous membranes. smooth tongue LUNGS: Breath sounds equal, clear to auscultation bilaterally, no accessory muscle use. HEART: Regular rate and rhythm, S1, S2 ABDOMEN: Soft, nontender, nondistended, normoactive bowel sounds, no guarding EXTREMITIES: 2+ pulses, warm, well-perfused, no edema. tick remnant noted on L thigh Laboratory Last Values WBC 3.6 K/mm3 (4.0-10.0) L 08/28/19 06:08 RBC 4.00 M/mm3 (3.60-5.2) 08/28/19 06:08 Hgb 11.8 GM/dL (10.7-15.3) 08/28/19 06:08 Hct 36.0 % (32.4-45.2) D 08/28/19 06:08 MCV 89.9 fl (80-96) 08/28/19 06:08 MCH 29.5 pg (25.7-33.7) 08/28/19 06:08 MCHC 32.8 g/dl (32.0-36.0) 08/28/19 06:08 RDW 13.0 % (11.6-15.6) 08/28/19 06:08 Plt Count 182 K/MM3 (134-434) 08/28/19 06:08 MPV 9.2 fl (7.5-11.1) 08/28/19 06:08 Absolute Neuts (auto) 1.6 K/mm3 (1.5-8.0) 08/27/19 21:13 Neutrophils % 47.3 % (42.8-82.8) 08/27/19 21:13 Lymphocytes % 43.8 % (8-40) H 08/27/19 21:13 Monocytes % 7.2 % (3.8-10.2) 08/27/19 21:13 Eosinophils % 0.8 % (0-4.5) 08/27/19 21:13 Basophils % 0.9 % (0-2.0) 08/27/19 21:13 Nucleated RBC % 0 % (0-0) 08/27/19 21:13 Sodium 143 mmol/L (136-145) 08/28/19 06:08 Potassium 3.7 mmol/L (3.5-5.1) 08/28/19 06:08 Chloride 109 mmol/L (98-107) H 08/28/19 06:08 Carbon Dioxide 27 mmol/L (21-32) 08/28/19 06:08 Anion Gap 6 MMOL/L (8-16) L 08/28/19 06:08 BUN 5.8 mg/dL (7-18) L 08/28/19 06:08 Creatinine 0.6 mg/dL (0.55-1.3) 08/28/19 06:08 Est GFR (CKD-EPI)AfAm 103.34 08/28/19 06:08 Est GFR (CKD-EPI)NonAf 89.16 08/28/19 06:08 Random Glucose 90 mg/dL (74-106) 08/28/19 06:08 Calcium 9.3 mg/dL (8.5-10.1) 08/28/19 06:08 Phosphorus 3.3 mg/dL (2.5-4.9) 08/28/19 06:08 Magnesium 2.2 mg/dL (1.8-2.4) 08/28/19 06:08 Ferritin 70.1 ng/ml (8-388) 08/28/19 06:08 Total Bilirubin 0.7 mg/dL (0.2-1) 08/27/19 21:13 AST 19 U/L (15-37) 08/27/19 21:13 ALT 24 U/L (13-61) 08/27/19 21:13 Alkaline Phosphatase 63 U/L (45-117) 08/27/19 21:13 Creatine Kinase 58 U/L (26-192) 08/27/19 21:13 Creatine Kinase Cancelled 08/27/19 21:13 Troponin I < 0.02 ng/ml (0.00-0.05) 08/27/19 21:13 Troponin I Cancelled 08/27/19 21:13 Total Protein 8.9 g/dl (6.4-8.2) H 08/27/19 21:13 Albumin 4.7 g/dl (3.4-5.0) 08/27/19 21:13 Lipase 152 U/L (73-393) 08/27/19 21:13 Vitamin B12 549 pg/ml (193-986) 08/28/19 06:08 Vitamin D Level 26.5 ng/mL (30-100) L 08/28/19 06:08 Serum Folate 17 ng/mL (3.1-17.5) 08/28/19 06:08 TSH 2.71 uIU/ml (0.358-3.74) 08/28/19 06:08 Urine Color Yellow 08/27/19 20:30 Urine Appearance Clear 08/27/19 20:30 Urine pH 7.5 (5.0-8.0) 08/27/19 20:30 Ur Specific [place] 1.014 (1.010-1.035) 08/27/19 20:30 Urine Protein Negative (NEGATIVE) 08/27/19 20:30 Urine Glucose (UA) Negative (NEGATIVE) 08/27/19 20:30 Urine Ketones Negative (NEGATIVE) 08/27/19 20:30 Urine Blood Trace (NEGATIVE) 08/27/19 20:30 Urine Nitrite Negative (NEGATIVE) 08/27/19 20:30 Urine Bilirubin Negative (NEGATIVE) 08/27/19 20:30 Urine Urobilinogen 1.0 mg/dL (0.2-1.0) 08/27/19 20:30 Ur Leukocyte Esterase Trace (NEGATIVE) 08/27/19 20:30 Urine WBC (Auto) 17 /uL (0-25.8) 08/27/19 20:30 Urine RBC (Auto) 46 /uL (0-23.9) 08/27/19 20:30 Urine Casts (Auto) 1 /uL (0-3.1) 08/27/19 20:30 U Epithel Cells (Auto) 11 /uL (0-25.1) 08/27/19 20:30 Urine Bacteria (Auto) 54 /uL (0-1359) 08/27/19 20:30 Active Medications Generic Name Dose Route Start Last Admin Trade Name Freq PRN Reason Stop Dose Admin Acetaminophen 650 mg 08/28/19 01:40 08/28/19 08:53 Tylenol - PO 650 mg Q4H PRN Administration PAIN LEVEL 1 - 3 Aspirin 81 mg 08/28/19 10:00 08/28/19 11:46 Asa - PO Not Given DAILY VALERIY Atorvastatin Calcium 80 mg 08/28/19 22:00 Lipitor - PO HS VALERIY Donepezil HCl 5 mg 08/28/19 22:00 Aricept - PO HS VALERIY Enoxaparin Sodium 40 mg 08/28/19 10:00 08/28/19 11:10 Lovenox - SQ 40 mg DAILY VALERIY Administration Sodium Chloride 1,000 mls @ 83 mls/hr 08/28/19 01:45 08/28/19 02:14 Normal Saline - IV 83 mls/hr ASDIR VALERIY Administration Doxycycline Hyclate 100 mg/ 100 mls @ 100 mls/hr 08/28/19 10:00 08/28/19 11:20 Dextrose IVPB 100 mls/hr BID VALERIY Administration Levothyroxine Sodium 50 mcg 08/28/19 07:00 08/28/19 06:37 Synthroid - PO 50 mcg ACBK VALERIY Administration Losartan Potassium 50 mg 08/28/19 10:00 08/28/19 11:46 Cozaar - PO Not Given DAILY VALERIY Pantoprazole Sodium 40 mg 08/28/19 07:00 08/28/19 06:37 Protonix - PO 40 mg ACBK VALERIY Administration ASSESSMENT/PLAN: 74 yo F with PMH of HTN, HLD, Hypothyroidism, and Dementia, who p/w worsening fatigue and weakness . pt recently lost sister . also noted to have tick and was started on Doxycycline 1 day ago Acute Toxic Metabolic Encephalopathy - possible 2/2 tick vs psych/ mourning component. removed possible tick particle on L thigh - pending lyme titers - c/w doxy bid for total of 21 days. ID recs appreciated - Neuro recs appreciated - c/w donepezil for dementia Failure to Thrive - nutrition consult - ensure Hypothyroidism - c/w home levothyroxine HTN - c/w home cozaar HLD -c/w home statin DVT PPx - Lovenox 40mg Sq Visit type - Emergency Visit Emergency Visit: Yes ED Registration Date: 08/27/19 Care time: The patient presented to the Emergency Department on the above date and was hospitalized for further evaluation of their emergent condition. - New Patient This patient is new to me today: Yes Date on this admission: 08/28/19 - Critical Care Critical Care patient: No - Discharge Referral Referred to [facility] No ATTENDING PHYSICIAN STATEMENT I saw and evaluated the patient. I reviewed the resident's note and discussed the case with the resident. I agree with the resident's findings and plan as documented. SUBJECTIVE: OBJECTIVE: ASSESSMENT AND PLAN:
--- NOTE | 2019-08-28 21:59 | CON.ID ---
Consult - History of Present Illness History of Present Illness: 74 y.o. female with PMH of HTN, HLD, hypothyroidism, and dementia diagnosed in Dec 2018 brought to ER because of decreased PO intake, less responsive, less motivation to interact, and generalized weakness over the past week. As per daughter at bedside, she had developed weakness was treated for a UTI during a 4 day hospitalization last month and d/c'd home on Ceftin which she completed. She improved but never fully returned to her baseline being active. Pt prior to that had been in the [facility] for about 6 months and her sister recently d ied. In addition pt's daughter states that in the past month she had been frequently visiting her son in the [facility]. She was noted to have what they thought was "a mole" on her upper Lt thigh but when seen by her son he noticed it was a tick that he removed. No redness/rash noted by family. Otherwise pt herself currently appears weak but is verbally responsive and without distress. Denies H/A, fever/chills, SOB/cough, focal weakness, dysuria but feels nauseous and c/o nonspecific lower abd discomfort. Denies vomiting or diarrhea/constipation. In the ER pt has been afebrile with vitals stable. Small dark lesion on Lt upper medial thigh noted ? retained part of tick. 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 Cardio/Vascular: Yes: HTN, Hyperlipdemia Endocrine: Yes: Hypothyroidism - Alcohol/Substance Use Hx Alcohol Use: No - Smoking History Smoking history: Never smoked Have you smoked in the past 12 months: No - Social History Usual Living Arrangement: Other (with family) History of Recent Travel: Yes ([facility]) Home Medications - Allergies Allergies/Adverse Reactions: Allergies Allergy/AdvReac Type Severity Reaction Status Date / Time No Known Allergies Allergy Verified 07/23/19 16:30 - Home Medications Home Medications: Ambulatory Orders Levothyroxine [Synthroid -] 50 mcg PO DAILY 01/25/17 Losartan Potassium 50 mg PO DAILY 07/24/19 Aspirin [ASA -] 81 mg PO DAILY #30 tab.chew 07/26/19 Atorvastatin Ca [Lipitor] 80 mg PO HS #30 tablet 07/26/19 Donepezil HCl [Aricept] 5 mg PO DAILY 08/27/19 Review of Systems - Review of Systems Constitutional: reports: Loss of Appetite, Weakness Eyes: reports: No Symptoms HENT: reports: No Symptoms Neck: reports: No Symptoms Cardiovascular: reports: No Symptoms Respiratory: reports: No Symptoms Gastrointestinal: reports: Abdominal Pain (lower abd - dull), Nausea Genitourinary: reports: No Symptoms Musculoskeletal: reports: No Symptoms Integumentary: reports: Lesions (Lt thigh "tick bite") Neurological: reports: Weakness, Other (slightly less responsive) Physical Exam Vital Signs: Vital Signs Temperature 98.5 F 08/28/19 08:52 Pulse Rate 69 08/28/19 19:32 Respiratory Rate 18 08/28/19 19:32 Blood Pressure 159/78 08/28/19 19:32 O2 Sat by Pulse Oximetry (%) 98 08/28/19 20:46 Constitutional: Yes: No Distress, Calm Eyes: Yes: Conjunctiva Clear, EOM Intact HENT: Yes: Atraumatic, Normocephalic Neck: Yes: Supple, Trachea Midline Cardiovascular: Yes: Regular Rate and Rhythm Respiratory: Yes: CTA Bilaterally Gastrointestinal: Yes: Normal Bowel Sounds, Soft, Tenderness (suprapubic/lower abd with deep palpation, no guarding/rigidity/distension) Renal/: Yes: WNL Musculoskeletal: Yes: Back Pain Extremities: Yes: WNL Edema: No Peripheral Pulses WNL: Yes Integumentary: Yes: Other (tiny Lt upper medial thigh dark lesion - ? retained part of tick. No erythema/induration/drainage/tenderness/warmth) Neurological: Yes: WNL, Alert Psychiatric: Yes: Alert Labs: CBC, BMP 08/28/19 06:08 08/28/19 06:08 Laboratory Tests 08/27/19 08/27/19 08/27/19 20:30 21:13 21:13 WBC 3.3 L RBC 4.79 Hgb 14.3 Hct 43.2 D MCV 90.2 MCH 29.9 MCHC 33.1 RDW 13.1 Plt Count 217 MPV 9.5 Absolute Neuts (auto) 1.6 Neutrophils % 47.3 Lymphocytes % 43.8 H Monocytes % 7.2 Eosinophils % 0.8 Basophils % 0.9 Nucleated RBC % 0 Sodium 138 Potassium 3.9 Chloride 102 Carbon Dioxide 29 Anion Gap 8 BUN 7.5 Creatinine 0.8 Est GFR (CKD-EPI)AfAm 83.59 Est GFR (CKD-EPI)NonAf 72.12 Random Glucose 132 H Calcium 10.4 H Phosphorus Magnesium Ferritin Total Bilirubin 0.7 AST 19 ALT 24 Alkaline Phosphatase 63 Creatine Kinase 58 Troponin I < 0.02 Total Protein 8.9 H Albumin 4.7 Lipase 152 Vitamin B12 Vitamin D Level Serum Folate TSH Urine Color Yellow Urine Appearance Clear Urine pH 7.5 Ur Specific [place] 1.014 Urine Protein Negative Urine Glucose (UA) Negative Urine Ketones Negative Urine Blood Trace Urine Nitrite Negative Urine Bilirubin Negative Urine Urobilinogen 1.0 Ur Leukocyte Esterase Trace Urine WBC (Auto) 17 Urine RBC (Auto) 46 Urine Casts (Auto) 1 U Epithel Cells (Auto) 11 Urine Bacteria (Auto) 54 08/27/19 08/28/19 08/28/19 21:13 06:08 06:08 WBC 3.6 L RBC 4.00 Hgb 11.8 Hct 36.0 D MCV 89.9 MCH 29.5 MCHC 32.8 RDW 13.0 Plt Count 182 MPV 9.2 Absolute Neuts (auto) Neutrophils % Lymphocytes % Monocytes % Eosinophils % Basophils % Nucleated RBC % Sodium 143 Potassium 3.7 Chloride 109 H Carbon Dioxide 27 Anion Gap 6 L BUN 5.8 L Creatinine 0.6 Est GFR (CKD-EPI)AfAm 103.34 Est GFR (CKD-EPI)NonAf 89.16 Random Glucose 90 Calcium 9.3 Phosphorus 3.3 Magnesium 2.2 Ferritin 70.1 Total Bilirubin AST ALT Alkaline Phosphatase Creatine Kinase Cancelled Troponin I Cancelled Total Protein Albumin Lipase Vitamin B12 549 Vitamin D Level Serum Folate 17 TSH Cancelled 2.71 Urine Color Urine Appearance Urine pH Ur Specific [place] Urine Protein Urine Glucose (UA) Urine Ketones Urine Blood Urine Nitrite Urine Bilirubin Urine Urobilinogen Ur Leukocyte Esterase Urine WBC (Auto) Urine RBC (Auto) Urine Casts (Auto) U Epithel Cells (Auto) Urine Bacteria (Auto) 08/28/19 06:08 WBC RBC Hgb Hct MCV MCH MCHC RDW Plt Count MPV Absolute Neuts (auto) Neutrophils % Lymphocytes % Monocytes % Eosinophils % Basophils % Nucleated RBC % Sodium Potassium Chloride Carbon Dioxide Anion Gap BUN Creatinine Est GFR (CKD-EPI)AfAm Est GFR (CKD-EPI)NonAf Random Glucose Calcium Phosphorus Magnesium Ferritin Total Bilirubin AST ALT Alkaline Phosphatase Creatine Kinase Troponin I Total Protein Albumin Lipase Vitamin B12 Vitamin D Level 26.5 L Serum Folate TSH Urine Color Urine Appearance Urine pH Ur Specific [place] Urine Protein Urine Glucose (UA) Urine Ketones Urine Blood Urine Nitrite Urine Bilirubin Urine Urobilinogen Ur Leukocyte Esterase Urine WBC (Auto) Urine RBC (Auto) Urine Casts (Auto) U Epithel Cells (Auto) Urine Bacteria (Auto) Imaging - Results Cat Scan: Report Reviewed Problem List - Problems (1) FTT (failure to thrive) in adult Code(s): R62.7 - ADULT FAILURE TO THRIVE (2) Altered mental status Code(s): R41.82 - ALTERED MENTAL STATUS, UNSPECIFIED Qualifiers: Altered mental status type: unspecified Qualified Code(s): R41.82 - Altered mental status, unspecified (3) HLD (hyperlipidemia) Code(s): E78.5 - HYPERLIPIDEMIA, UNSPECIFIED (4) HTN (hypertension) Code(s): I10 - ESSENTIAL (PRIMARY) HYPERTENSION (5) UTI (urinary tract infection) Code(s): N39.0 - URINARY TRACT INFECTION, SITE NOT SPECIFIED Assessment/Plan Failure to thrive AMS ? Tick bite Dementia hypothyroid HTN HLD Recent UTI -- Pt without obvious neurological signs/symptoms of early disseminated Lyme such as facial palsy, meningitis, sensory/motor radiculopathy -- Lyme serology sent, can continue Doxycycline, attempt to remove what might be remnant of tick on thigh -- Neurology evaluation , consider Psychiatry consult to evaluate for depression -- U/A not impressive - follow up urine culture results Will follow up Thank you
[2019-08-28] MEDS ORDERED: DONEPEZIL HCL 5 MG TABLET (FP) PO SCH (22:00)
[2019-08-28 22:40] VITALS: BMI 16.6
[2019-08-28] MEDS ORDERED: DEXTROSE 5%-WATER 100 ML IVPB ONE (22:51)
[2019-08-28] MEDS: ATORVASTATIN CA 80 MG TABLET (FP) PO SCH (22:53)
[2019-08-29] MEDS: ONDANSETRON 4 MG TABLET PO ONE ×2 (02:08→02:51)
[2019-08-29] MEDS: PANTOPRAZOLE 40 MG TABLET PO SCH (07:47)
[2019-08-29] MEDS: LEVOTHYROXINE NA 50 MCG TABLET (FP) PO SCH (07:47)
[2019-08-29 09:12] LABS: HEMATOCRIT 36.9 % (32.4-45.2); HEMOGLOBIN 12.4 GM/dL (10.7-15.3); MCH 30.1 pg (25.7-33.7); MCHC 33.6 g/dl (32.0-36.0); MEAN CELL VOLUME 89.6 fl (80-96); MEAN PLT VOLUME 9.4 fl (7.5-11.1); PLATELET COUNT 181 K/MM3 (134-434); RBC 4.12 M/mm3 (3.60-5.2); RDW 12.7 % (11.6-15.6)
--- NOTE | 2019-08-29 09:19 | EKG ---
Test Reason : Blood Pressure : / mmHG Vent. Rate : 071 BPM Atrial Rate : 071 BPM P-R Int : 148 ms QRS Dur : 086 ms QT Int : 364 ms P-R-T Axes : 076 084 085 degrees QTc Int : 395 ms NORMAL SINUS RHYTHM NORMAL ECG WHEN COMPARED WITH ECG OF 23-JUL-2019 16:53, NO SIGNIFICANT CHANGE WAS FOUND Confirmed by Matilde Gomez ([id number]) on 08/29/2019 9:18:43 AM Referred By: Confirmed By:Matilde Gomez
[2019-08-29 09:24] LABS: ALBUMIN 3.9 g/dl (3.4-5.0); BILIRUBIN,TOTAL 1.1 mg/dL (0.2-1); BLOOD UREA NITROGEN 4.4 mg/dL (7-18); CALCIUM 9.8 mg/dL (8.5-10.1); CREATININE 0.6 mg/dL (0.55-1.3); MAGNESIUM 2.2 mg/dL (1.8-2.4); PHOSPHOROUS 3.2 mg/dL (2.5-4.9); POTASSIUM 3.7 mmol/L (3.5-5.1); TOT PROT 7.2 g/dl (6.4-8.2)
[2019-08-29] MEDS ORDERED: DOXYCYCLINE HYCLATE 100 MG VIAL ONE ×2 (09:35→20:46)
[2019-08-29] MEDS ORDERED: DEXTROSE 5%-WATER 100 ML IVPB ONE ×2 (09:35→20:46)
[2019-08-29] MEDS: DOXYCYCLINE INJECTION 100 MG in DEXTROSE 5%-WATER 100 ML IVPB SCH ×2 (09:45→21:10)
[2019-08-29] MEDS: ASPIRIN 81 MG CHEWABLE TABLETS PO SCH (09:45)
[2019-08-29] MEDS: ENOXAPARIN NA (PORCINE) 40 MG/0.4 ML DISP.SYRIN SQ SCH (09:46)
[2019-08-29] MEDS: SODIUM CHLORIDE 1,000 ML IV SCH (09:46)
[2019-08-29] MEDS: LOSARTAN POTASSIUM 50 MG TABLET (FP) PO SCH (09:47)
[2019-08-29] MEDS: ACETAMINOPHEN 325 MG TABLET (FP) PO PRN ×2 (10:00→20:52)
--- NOTE | 2019-08-29 12:22 | CONSULT ---
Admitting History and Physical - Admission History of Present Illness: 74 year old female patient with past medical history that includes HTN, HLD, Hypothyroidism, and Dementia, who presented to the ED with severe fatigue and weakness and severe depression. 1. Failure to thrive secondary to depression vs. UTI vs. Lyme disease vs. hypothyroidism Known to me from July 2019 admission- Diet Consistency: Dysphagia Minced Liquids: Thin Liquids Supplement: Ensure, Magic Cup, Ensure Pudding Confused, verbal, not eating for staff. Holding in her mouth. Seen at nurse's station, holding saliva in mouth. Pt encouraged to spit out saliva. Pt then accepted ensure clear from cup and straw for me, without signs of Aspiration. Suggest Dysphagia puree, may mix with liquid to drink eg into soup or hot cereal/yogurt into milk? 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 Cardiovascular: Yes: HTN, Hyperlipdemia ...: No Endocrine: Yes: Hypothyroidism - Smoking History Smoking history: Never smoked Have you smoked in the past 12 months: No - Alcohol/Substance Use Hx Alcohol Use: No - Social History History of Recent Travel: Yes ([place]) History - Admission Reason For Visit: ALTERED MENTAL STATUS - Diagnostics X-ray: Report Reviewed - General Mental Status: Awake and Alert, Vague, Confused Attention: Mild Impairment Ability to Follow Directions: Fair Head/Neck Control: Needs Assist - Hearing Hearing: Functional Hearing: Normal Speech Evaluation - Communication Primary Language: CHINESE Communication: Yes: Simple Responses (limited simple responses. c/o not feeling well.) - Speech Production Intelligibility: Yes: Mildly Impaired - Speech Characteristics Voice Loudness: Mildly Soft/Quiet Voice Pitch: Yes: Normal Voice Phonatory-based Quality: Yes: Normal Articulation: Yes: Precise - Language/Auditory Comprehension Follows: Yes: 1 Stage Simple Commands Observation: Able to respond to yes/no queries: Yes, Comprehends Conversational Speech: Yes - Language/Verbal Expression Functional Communication Status: Yes: WNL (sijmple responses. not feeling well) - Swallow Evaluation/Bedside Assessment Current Nutritional Intake: Regular, Thin Liquids Bolus Size: Small A-P Transit: WFL Timing of Swallow: WFL Coughing/Throat Clear: No Change in Voice: No Recommendations - Speech Evaluation, Impression/Plan Impression: Poor PO acceptance during July admission. 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 C/O not feeling well. c/o abd pain. Overtly tolerated thin liquid without difficulty. Failure to thrive- Medical cause vs anorexia sec dementia? Pt is a full code. Concur with neuro/Psych consults - Disposition Discharge to: To be Determined - Dysphagia Impressions/Plan Dysphagia Impressions: Ongoing Evaluation *Silent aspiration: cannot be R/O at bedside Recommendations: Palliative Care (Pt's wishes? full code. TF?), Other (RD f/u Appetite stimulant?) - Recommendations Diet Consistency: Dysphagia Pureed Medication Administration: Crushed with applesauce Liquids: Thin Liquids Supplement: Ensure, Magic Cup, Ensure Pudding
--- NOTE | 2019-08-29 14:24 | PN ---
Progress Note, Physician History of Present Illness: awake alert still confused not eating thin - Current Medication List Current Medications: Active Medications Acetaminophen (Tylenol -) 650 mg PO Q4H PRN PRN Reason: PAIN LEVEL 1 - 3 Last Admin: 08/29/19 10:00 Dose: 650 mg Documented by: Amino Acids (Prosource No Carb Liquid Pkt) 30 ml PO BID@0800,1730 [facility] Aspirin (Asa -) 81 mg PO DAILY [facility] Last Admin: 08/29/19 09:45 Dose: 81 mg Documented by: Atorvastatin Calcium (Lipitor -) 80 mg PO [facility] Last Admin: 08/28/19 22:53 Dose: 80 mg Documented by: Donepezil HCl (Aricept -) 5 mg PO [facility] Last Admin: 08/28/19 22:53 Dose: 5 mg Documented by: Enoxaparin Sodium (Lovenox -) 40 mg SQ DAILY [facility] Last Admin: 08/29/19 09:46 Dose: 40 mg Documented by: Sodium Chloride (Normal Saline -) 1,000 mls @ 83 mls/hr IV ASDIR [facility] Last Admin: 08/29/19 09:46 Dose: 83 mls/hr Documented by: Doxycycline Hyclate 100 mg/ (Dextrose) 100 mls @ 100 mls/hr IVPB BID [facility] Last Admin: 08/29/19 09:45 Dose: 100 mls/hr Documented by: Levothyroxine Sodium (Synthroid -) 50 mcg PO ACBK [facility] Last Admin: 08/29/19 07:47 Dose: 50 mcg Documented by: Losartan Potassium (Cozaar -) 50 mg PO DAILY [facility] Last Admin: 08/29/19 09:47 Dose: 50 mg Documented by: Pantoprazole Sodium (Protonix -) 40 mg PO ACBK [facility] Last Admin: 08/29/19 07:47 Dose: 40 mg Documented by: - Objective Vital Signs: Vital Signs Temperature 98.8 F 08/29/19 08:35 Pulse Rate 80 08/29/19 09:28 Respiratory Rate 20 08/29/19 09:28 Blood Pressure 155/90 08/29/19 09:28 O2 Sat by Pulse Oximetry (%) 99 08/29/19 08:35 Constitutional: Yes: Calm, Mild Distress, Other (pain) Cardiovascular: Yes: S1, S2 Respiratory: Yes: Regular, CTA Bilaterally Gastrointestinal: Yes: Normal Bowel Sounds, Soft Musculoskeletal: Yes: WNL Extremities: Yes: Other Neurological: Yes: Alert, Confusion Psychiatric: Yes: Other Labs: CBC, BMP 08/29/19 07:53 08/29/19 07:53 Assessment/Plan Problem List - Problems (1) FTT (failure to thrive) in adult Code(s): R62.7 - ADULT FAILURE TO THRIVE (2) Altered mental status Code(s): R41.82 - ALTERED MENTAL STATUS, UNSPECIFIED Qualifiers: Altered mental status type: unspecified Qualified Code(s): R41.82 - Altered mental status, unspecified (3) HLD (hyperlipidemia) Code(s): E78.5 - HYPERLIPIDEMIA, UNSPECIFIED (4) HTN (hypertension) Code(s): I10 - ESSENTIAL (PRIMARY) HYPERTENSION (5) UTI (urinary tract infection) Code(s): N39.0 - URINARY TRACT INFECTION, SITE NOT SPECIFIED Assessment/Plan Failure to thrive AMS ? Tick bite Dementia hypothyroid HTN HLD Recent UTI plan continue abx nutrition await for results rest as per the team
--- NOTE | 2019-08-29 15:41 | CON.PSY ---
Psychiatry Consult Chief Complaint: 74 Year old female seen for Psych eval. Detailed history obtained from her daughter.. Patient had been cognitivly intact and was cooking and doing ADL"s . Patient had UTI and lost one of her Cousins. Feels depressed and broken. Has poor sleep and appetite. No Psych illness or Hospitalizations. Symptoms: reports: Depressed Mood, Anhedonia, Decreased Energy - Previous Psychiatric Treatment Outpatient: None Inpatient: None - Previous Substance Abuse Treatment Outpatient: None Inpatient: None - Current Medications Current Medications: Active Medications Acetaminophen (Tylenol -) 650 mg PO Q4H PRN PRN Reason: PAIN LEVEL 1 - 3 Last Admin: 08/29/19 10:00 Dose: 650 mg Documented by: Amino Acids (Prosource No Carb Liquid Pkt) 30 ml PO BID@0800,1730 [facility] Aspirin (Asa -) 81 mg PO DAILY [facility] Last Admin: 08/29/19 09:45 Dose: 81 mg Documented by: Atorvastatin Calcium (Lipitor -) 80 mg PO HS [facility] Last Admin: 08/28/19 22:53 Dose: 80 mg Documented by: Enoxaparin Sodium (Lovenox -) 40 mg SQ DAILY [facility] Last Admin: 08/29/19 09:46 Dose: 40 mg Documented by: Sodium Chloride (Normal Saline -) 1,000 mls @ 83 mls/hr IV ASDIR [facility] Last Admin: 08/29/19 09:46 Dose: 83 mls/hr Documented by: Doxycycline Hyclate 100 mg/ (Dextrose) 100 mls @ 100 mls/hr IVPB BID [facility] Last Admin: 08/29/19 09:45 Dose: 100 mls/hr Documented by: Levothyroxine Sodium (Synthroid -) 50 mcg PO ACBK [facility] Last Admin: 08/29/19 07:47 Dose: 50 mcg Documented by: Losartan Potassium (Cozaar -) 50 mg PO DAILY [facility] Last Admin: 08/29/19 09:47 Dose: 50 mg Documented by: Pantoprazole Sodium (Protonix -) 40 mg PO ACBK [facility] Last Admin: 08/29/19 07:47 Dose: 40 mg Documented by: - Allergies Allergies: Allergies Allergy/AdvReac Type Severity Reaction Status Date / Time No Known Allergies Allergy Verified 07/23/19 16:30 - Current Living Status Usual Living Arrangement: With Significant Other - Current Mental Status Evaluation Appearance: Disheveled Attitude: Guarded - Affect Affect: Constrictive Appropriateness: Appropriate to Content - Mood Mood: Depressed - Speech/Language Expressive: Coherent - Psychomotor Activity Psychomotor Activity: Slowed - Thought Process Thought Process: Intact - Thought Content Hallucinations: Absent Delusions: Absent - Self Perception Self Perception: No Impairment - Cognition Attention: Alert Memory, Short Term: 2/3 Memory, Remote with Promptin/3 - Concentration Serial Sevens Intact: No Simple Calculations Intact: Yes - Abstraction Proverb Interpretation: Intact Judgement: Intact - Insight Insight: Intact - Impulse Control Impulse Control: Good Control - Suicidal Ideation Suicidal Ideation: No - Homicidal Ideation Homicidal Ideation: No Assessment/Plan 1) Remeron 7.5 mg po hs and can be increased to 15 mg in a Week.
--- NOTE | 2019-08-29 16:30 | CON.NEURO ---
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 Cardio/Vascular: Yes: HTN, Hyperlipdemia ...: No Endocrine: Yes: Hypothyroidism - Alcohol/Substance Use Hx Alcohol Use: No - Smoking History Smoking history: Never smoked Have you smoked in the past 12 months: No - Social History Usual Living Arrangement: With Significant Other History of Recent Travel: Yes ([place]) Home Medications - Allergies Allergies/Adverse Reactions: Allergies Allergy/AdvReac Type Severity Reaction Status Date / Time No Known Allergies Allergy Verified 07/23/19 16:30 - Home Medications Home Medications: Ambulatory Orders Levothyroxine [Synthroid -] 50 mcg PO DAILY 01/25/17 Losartan Potassium 50 mg PO DAILY 07/24/19 Aspirin [ASA -] 81 mg PO DAILY #30 tab.chew 07/26/19 Atorvastatin Ca [Lipitor] 80 mg PO HS #30 tablet 07/26/19 Donepezil HCl [Aricept] 5 mg PO DAILY 08/27/19 Cefuroxime Axetil [Cefuroxime] 250 mg PO BID 08/29/19 Physical Exam-Neuro Vital Signs: Vital Signs Temperature 97.9 F 08/29/19 14:00 Pulse Rate 77 08/29/19 14:00 Respiratory Rate 20 08/29/19 14:00 Blood Pressure 154/69 08/29/19 14:00 O2 Sat by Pulse Oximetry (%) 97 08/29/19 14:00 Labs: CBC, BMP 08/29/19 07:53 08/29/19 07:53 Assessment/Plan cc Failure to thrive and lack of energy HPI 74 year old female history of HTN,HLD, Hypothyroidism, Dementia. Patient is latvian spekaing, history was taken with help of her daugher over the phone. Patient's sister few months ago, and she has history of ? dementia. Recently in july, she was admitted to [facility] for uti and confusion and she came back to her baseline. Last few days prior to hospital admission , she has been expressing desire to pass away. Patient denies any seiure like activity, or headhace , no fever or any flu like illness. Patient has been see by psych and started on antidepressant . She also have tick removed from her thigh and being investigated for tick bite. Liz has no neurological symptomms suggestive of neuropathy, seizure or headhace. PAST MEDICAL HISTORY: HTN, HLD, Hypothyroidism, Dementia PAST SURGICAL HISTORY: Social History: Smoking: Denies Alcohol: Denies Drugs: Denies Allergies No Known Allergies Allergy (Verified 07/23/19 16:30) HOME MEDICATIONS: Home Medications Medication Instructions Recorded Levothyroxine [Synthroid -] 50 mcg PO DAILY 01/25/17 Losartan Potassium 50 mg PO DAILY 07/24/19 Aspirin [ASA -] 81 mg PO DAILY #30 tab.chew 07/26/19 Atorvastatin Ca [Lipitor] 80 mg PO HS #30 tablet 07/26/19 Donepezil HCl [Aricept] 5 mg PO DAILY 08/27/19 Ros , FH,Sh reviewed in chart Neurological EXAMINATION Alert , oriented x 1, she knows her name and she knows she is in hospital as per daughter she would not know even when she was alright afebrile, neck is supple vss eomi, puils reactive moving all ext sensation is normal ct head is unremarkable Assessment/Plan 74 year old female history of HTN,HLD, Hypothyroidism,?Dementia . She came with failure to thrive and feeling sad and depressed and expressing desire to pass away, no evidence of headache, neck stiffness, or fever ct head is normal, clinically less likely to be meningitis, stroke or status epilepticus Plan: I would do mri of brain and eeg for remote possibility of sroke or status epilepticus , though less likley thanking you so much Tj Henderson MD
[2019-08-29] MEDS: AMINO ACIDS/PROTEIN HYDROLYS 30 ML LIQUID.PKT PO SCH (17:18)
--- NOTE | 2019-08-29 17:22 | PN ---
Teaching Attending Note Name of Resident: Jeovany Pennington ATTENDING PHYSICIAN STATEMENT I saw and evaluated the patient. I reviewed the resident's note and discussed the case with the resident. I agree with the resident's findings and plan as documented. SUBJECTIVE: OBJECTIVE: Vital Signs Temperature 97.9 F 08/29/19 14:00 Pulse Rate 77 08/29/19 14:00 Respiratory Rate 20 08/29/19 14:00 Blood Pressure 154/69 08/29/19 14:00 O2 Sat by Pulse Oximetry (%) 97 08/29/19 14:00 PE: per resident's note CBCD WBC 7.0 K/mm3 (4.0-10.0) 08/29/19 07:53 RBC 4.12 M/mm3 (3.60-5.2) 08/29/19 07:53 Hgb 12.4 GM/dL (10.7-15.3) 08/29/19 07:53 Hct 36.9 % (32.4-45.2) 08/29/19 07:53 MCV 89.6 fl (80-96) 08/29/19 07:53 MCHC 33.6 g/dl (32.0-36.0) 08/29/19 07:53 RDW 12.7 % (11.6-15.6) 08/29/19 07:53 Plt Count 181 K/MM3 (134-434) 08/29/19 07:53 MPV 9.4 fl (7.5-11.1) 08/29/19 07:53 CMP Sodium 141 mmol/L (136-145) 08/29/19 07:53 Potassium 3.7 mmol/L (3.5-5.1) 08/29/19 07:53 Chloride 107 mmol/L (98-107) 08/29/19 07:53 Carbon Dioxide 26 mmol/L (21-32) 08/29/19 07:53 Anion Gap 8 MMOL/L (8-16) 08/29/19 07:53 BUN 4.4 mg/dL (7-18) L 08/29/19 07:53 Creatinine 0.6 mg/dL (0.55-1.3) 08/29/19 07:53 Random Glucose 94 mg/dL (74-106) 08/29/19 07:53 Calcium 9.8 mg/dL (8.5-10.1) 08/29/19 07:53 Total Bilirubin 1.1 mg/dL (0.2-1) H 08/29/19 07:53 AST 17 U/L (15-37) 08/29/19 07:53 ALT 20 U/L (13-61) 08/29/19 07:53 Alkaline Phosphatase 50 U/L (45-117) 08/29/19 07:53 Total Protein 7.2 g/dl (6.4-8.2) 08/29/19 07:53 Albumin 3.9 g/dl (3.4-5.0) 08/29/19 07:53 CARDIAC ENZYMES Creatine Kinase 58 U/L (26-192) 08/27/19 21:13 Creatine Kinase Cancelled 08/27/19 21:13 Troponin I < 0.02 ng/ml (0.00-0.05) 08/27/19 21:13 Troponin I Cancelled 08/27/19 21:13 Current Medications Generic Name Dose Route Start Last Admin Trade Name Robert PRN Reason Stop Dose Admin Acetaminophen 650 mg 08/28/19 01:40 08/29/19 10:00 Tylenol - PO 650 mg Q4H PRN Administration PAIN LEVEL 1 - 3 Amino Acids 30 ml 08/29/19 17:30 08/29/19 17:18 Prosource No Carb Liquid Pkt PO 30 ml BID@0800,1730 VALERIY Administration Aspirin 81 mg 08/28/19 10:00 08/29/19 09:45 Asa - PO 81 mg DAILY VALERIY Administration Atorvastatin Calcium 80 mg 08/28/19 22:00 08/28/19 22:53 Lipitor - PO 80 mg HS VALERIY Administration Enoxaparin Sodium 40 mg 08/28/19 10:00 08/29/19 09:46 Lovenox - SQ 40 mg DAILY VALERIY Administration Sodium Chloride 1,000 mls @ 83 mls/hr 08/28/19 01:45 08/29/19 09:46 Normal Saline - IV 83 mls/hr ASDIR VALERIY Administration Doxycycline Hyclate 100 mg/ 100 mls @ 100 mls/hr 08/28/19 10:00 08/29/19 09:45 Dextrose IVPB 100 mls/hr BID VALERIY Administration Levothyroxine Sodium 50 mcg 08/28/19 07:00 08/29/19 07:47 Synthroid - PO 50 mcg ACBK VALERIY Administration Losartan Potassium 50 mg 08/28/19 10:00 08/29/19 09:47 Cozaar - PO 50 mg DAILY VALERIY Administration Mirtazapine 7.5 mg 08/29/19 22:00 Remeron - PO HS VALERIY Pantoprazole Sodium 40 mg 08/28/19 07:00 08/29/19 07:47 Protonix - PO 40 mg ACBK VALERIY Administration Home Medications Medication Instructions Recorded Levothyroxine [Synthroid -] 50 mcg PO DAILY 01/25/17 Losartan Potassium 50 mg PO DAILY 07/24/19 Aspirin [ASA -] 81 mg PO DAILY #30 tab.chew 07/26/19 Atorvastatin Ca [Lipitor] 80 mg PO HS #30 tablet 07/26/19 Donepezil HCl [Aricept] 5 mg PO DAILY 08/27/19 Cefuroxime Axetil [Cefuroxime] 250 mg PO BID 08/29/19 Microbiology 08/27/19 20:30 Urine - Urine Clean Catch Urine Culture - Final NO GROWTH OBTAINED ASSESSMENT AND PLAN: This patient is a 74yof with PMhx of HTN, HLD, Hypothyroidism, and Dementia, who presented to the ED with severe fatigue and weakness and severe depression. # Failure to thrive secondary to depression , possible hypothyroidism/normal grief due to her sister's , will get pschy to see the patient since looks very depressed. # Hypothyroidism: continue Levothyroxine # HTN: continue losartan # HLD: continue lipitor # Dementia: c ontinue aricept #+ tick on her skin s/p removal : for unknown time , as per daughter over a week, discussed with Dr Torres to continue doxy for 21 days DVT PPx - Lovenox 40mg Sq
--- NOTE | 2019-08-29 17:50 | PN ---
Physical Exam: SUBJECTIVE: No overnight events. Patient seen and examined. C/o Epigastric pain. Denies burning, pressure, sharp pain. Unable to describe her pain. Only describes the pain as "ugly." Says her body "rejects food." OBJECTIVE: Vital Signs Period Temp Pulse Resp BP Sys/Montes Pulse Ox Last 24 Hr 97.9 F-98.8 F 69-89 18-20 149-159/69-92 97-99 GENERAL: The patient is awake, alert, and oriented to person. no acute distress. HEENT: NT/NC, No ptosis. MMM LUNGS: Breath sounds equal, clear to auscultation bilaterally, no wheezes, no crackles, no accessory muscle use. HEART: Regular rate and rhythm, S1, S2 without murmur, rub or gallop. ABDOMEN: Soft, nontender, nondistended, normoactive bowel sounds, no guarding, no rebound EXTREMITIES: 2+ pulses, warm, well-perfused, no edema. NEUROLOGICAL: gait not observed. PSYCH:depressed mood SKIN: Warm, dry, normal turgor, no rashes or lesions noted Laboratory Results - last 24 hr 08/27/19 08/28/19 08/28/19 21:13 08:45 22:58 WBC RBC Hgb Hct MCV MCH MCHC RDW Plt Count MPV Sodium Potassium Chloride Carbon Dioxide Anion Gap BUN Creatinine Est GFR (CKD-EPI)AfAm Est GFR (CKD-EPI)NonAf POC Glucometer 84 Random Glucose Calcium Phosphorus Magnesium Total Bilirubin AST ALT Alkaline Phosphatase Total Protein Albumin Lyme Screen IgG & IgM <0.91 COVID-19 ([facility]) Not detected 08/29/19 08/29/19 08/29/19 04:31 07:53 07:53 WBC 7.0 RBC 4.12 Hgb 12.4 Hct 36.9 MCV 89.6 MCH 30.1 MCHC 33.6 RDW 12.7 Plt Count 181 MPV 9.4 Sodium 141 Potassium 3.7 Chloride 107 Carbon Dioxide 26 Anion Gap 8 BUN 4.4 L Creatinine 0.6 Est GFR (CKD-EPI)AfAm 103.34 Est GFR (CKD-EPI)NonAf 89.16 POC Glucometer 112 Random Glucose 94 Calcium 9.8 Phosphorus 3.2 Magnesium 2.2 Total Bilirubin 1.1 H AST 17 ALT 20 Alkaline Phosphatase 50 Total Protein 7.2 Albumin 3.9 Lyme Screen IgG & IgM COVID-19 ([facility]) 08/29/19 08/29/19 08:15 17:11 WBC RBC Hgb Hct MCV MCH MCHC RDW Plt Count MPV Sodium Potassium Chloride Carbon Dioxide Anion Gap BUN Creatinine Est GFR (CKD-EPI)AfAm Est GFR (CKD-EPI)NonAf POC Glucometer 108 127 Random Glucose Calcium Phosphorus Magnesium Total Bilirubin AST ALT Alkaline Phosphatase Total Protein Albumin Lyme Screen IgG & IgM COVID-19 ([facility]) Active Medications Generic Name Dose Route Start Last Admin Trade Name Freq PRN Reason Stop Dose Admin Acetaminophen 650 mg 08/28/19 01:40 08/29/19 10:00 Tylenol - PO 650 mg Q4H PRN Administration PAIN LEVEL 1 - 3 Amino Acids 30 ml 08/29/19 17:30 08/29/19 17:18 Prosource No Carb Liquid Pkt PO 30 ml BID@0800,1730 VALERIY Administration Aspirin 81 mg 08/28/19 10:00 08/29/19 09:45 Asa - PO 81 mg DAILY VALERIY Administration Atorvastatin Calcium 80 mg 08/28/19 22:00 08/28/19 22:53 Lipitor - PO 80 mg HS VALERIY Administration Enoxaparin Sodium 40 mg 08/28/19 10:00 08/29/19 09:46 Lovenox - SQ 40 mg DAILY VALERIY Administration Sodium Chloride 1,000 mls @ 83 mls/hr 08/28/19 01:45 08/29/19 09:46 Normal Saline - IV 83 mls/hr ASDIR VALERIY Administration Doxycycline Hyclate 100 mg/ 100 mls @ 100 mls/hr 08/28/19 10:00 08/29/19 09:45 Dextrose IVPB 100 mls/hr BID VALERIY Administration Levothyroxine Sodium 50 mcg 08/28/19 07:00 08/29/19 07:47 Synthroid - PO 50 mcg ACBK VALERIY Administration Losartan Potassium 50 mg 08/28/19 10:00 08/29/19 09:47 Cozaar - PO 50 mg DAILY VALERIY Administration Mirtazapine 7.5 mg 08/29/19 22:00 Remeron - PO HS VALERIY Pantoprazole Sodium 40 mg 08/28/19 07:00 08/29/19 07:47 Protonix - PO 40 mg ACBK VALERIY Administration ASSESSMENT/PLAN: 74 YO F PMH Dementia, Hypothyroidism, HLD, HTN, presents with weakness & fatigue. #Acute Toxic Metabolic Encephalopathy 2/2 Lyme disease VS Grief Disorder/Depression -component of Tick was removed from pts Left thigh. Doxycycline was started on 08/25 prior to admission. c/w doxycycline for 21 days total -f/u lyme titers -pts sister recently from [employer]. Pt was told about sisters a little after July 15. Pt had depressed mood, reduced energy, anhedonia. Psych c/s appreciated (Chepuru). Started on Mirtazapine (Remeron) 7.5 mg PO HS. In a wk, can be increased to 15 mg. -donepezil was d/c - Neuro c/s appreciated (Beatriz). MRI & EEG ordered to r/o stroke/status epilepticus #Failure to Thrive 2/2 hypothyroidism VS Grief Disorder/Depression -TSH WNL. See above regarding pts grief disorder/depression -lost 5% weight since last admission in July 2019 - dysphagia puree w/ ensure #HTN losartan (Cozaar) 50 mg PO daily #HLD -atorvastatin 80 mg PO HS #Hypothyroidism - c/w home levothyroxine 50 mcg PO #DVT PPX Lovenox 40mg Sq #FEN NS monitor lytes dysphagia puree w/ ensure Visit type - Emergency Visit Emergency Visit: Yes ED Registration Date: 08/27/19 Care time: The patient presented to the Emergency Department on the above date and was hospitalized for further evaluation of their emergent condition. - New Patient This patient is new to me today: No - Critical Care Critical Care patient: No - Medication Review Med list reviewed for High Risk Meds patients 65 and older: Yes ATTENDING PHYSICIAN STATEMENT I saw and evaluated the patient. I reviewed the resident's note and discussed the case with the resident. I agree with the resident's findings and plan as documented. SUBJECTIVE: OBJECTIVE: ASSESSMENT AND PLAN:
[2019-08-29] MEDS: ATORVASTATIN CA 80 MG TABLET (FP) PO SCH (21:09)
[2019-08-29] MEDS: MIRTAZAPINE 15 MG TABLET (FP) PO SCH (21:09)
[2019-08-30] MEDS: SODIUM CHLORIDE 1,000 ML IV SCH ×2 (02:39→18:55)
[2019-08-30] MEDS: LEVOTHYROXINE NA 50 MCG TABLET (FP) PO SCH (07:06)
[2019-08-30] MEDS: PANTOPRAZOLE 40 MG TABLET PO SCH (07:06)
[2019-08-30 08:16] LABS: BASO % 1.3 % (0-2.0); EOS % 2.9 % (0-4.5); HEMATOCRIT 38.2 % (32.4-45.2); HEMOGLOBIN 12.3 GM/dL (10.7-15.3); LYMPH % 49.3 % (8-40); MCH 29.2 pg (25.7-33.7); MCHC 32.3 g/dl (32.0-36.0); MEAN CELL VOLUME 90.4 fl (80-96); MEAN PLT VOLUME 9.3 fl (7.5-11.1); MONO % 15.3 % (3.8-10.2); NEUT % 31.2 % (42.8-82.8); PLATELET COUNT 194 K/MM3 (134-434); RBC 4.22 M/mm3 (3.60-5.2)
[2019-08-30 08:50] LABS: ALBUMIN 3.9 g/dl (3.4-5.0); BLOOD UREA NITROGEN 5.6 mg/dL (7-18); CALCIUM 9.5 mg/dL (8.5-10.1); CREATININE 0.7 mg/dL (0.55-1.3); MAGNESIUM 2.3 mg/dL (1.8-2.4); PHOSPHOROUS 3.5 mg/dL (2.5-4.9); POTASSIUM 3.4 mmol/L (3.5-5.1); TOT PROT 7.3 g/dl (6.4-8.2)
[2019-08-30] MEDS: ASPIRIN 81 MG CHEWABLE TABLETS PO SCH (09:15)
[2019-08-30] MEDS: AMINO ACIDS/PROTEIN HYDROLYS 30 ML LIQUID.PKT PO SCH ×2 (09:15→17:31)
[2019-08-30] MEDS: LOSARTAN POTASSIUM 50 MG TABLET (FP) PO SCH (09:15)
[2019-08-30] MEDS: ENOXAPARIN NA (PORCINE) 40 MG/0.4 ML DISP.SYRIN SQ SCH (09:15)
--- NOTE | 2019-08-30 10:30 | PN ---
Progress Note, BRIDGE PAINTER - Note Progress Note: Selected Entries 08/29/19 08/29/19 08/29/19 02:00 08:35 09:28 Diet Tolerated Supper Temperature 98.6 F 98.8 F Blood Pressure 153/83 149/86 155/90 08/29/19 08/29/19 08/29/19 14:00 18:00 22:00 Diet Tolerated Refused Refused Supper 0 Temperature 97.9 F 97.9 F 98.4 F Blood Pressure 154/69 149/77 163/88 08/30/19 08/30/19 06:00 09:34 Diet Tolerated Supper Temperature 98 F 97.7 F Blood Pressure 159/91 147/87 Laboratory Tests 08/30/19 07:15 WBC 4.0 On puree/thin liquid, refusing PO trials. Appreciate Psych/Neuro evaluations. Per daughter- Patient had been cognitivly intact and was cooking and doing ADL"s . Patient had UTI and lost one of her Cousins. Feels depressed and broken. Has poor sleep and appetite. No Psych illness or Hospitalizations. Patient's sister few months ago, and she has history of ? dementia. Recently in july, she was admitted to [facility] for uti and confusion and she came back to her baseline. Suspected depression- Remeron h/o ? r/o dementia? MRI ordered. Poor PO acceptance. Language barrier. cognition? Verbal.
[2019-08-30] MEDS ORDERED: DOXYCYCLINE HYCLATE 100 MG VIAL ONE (11:36)
[2019-08-30] MEDS ORDERED: DEXTROSE 5%-WATER 100 ML IVPB ONE (11:36)
[2019-08-30] MEDS: DOXYCYCLINE INJECTION 100 MG in DEXTROSE 5%-WATER 100 ML IVPB SCH (12:09)
--- NOTE | 2019-08-30 13:19 | PN ---
Progress Note, Physician - Current Medication List Current Medications: Active Medications Acetaminophen (Tylenol -) 650 mg PO Q4H PRN PRN Reason: PAIN LEVEL 1 - 3 Last Admin: 08/29/19 20:52 Dose: 650 mg Documented by: Amino Acids (Prosource No Carb Liquid Pkt) 30 ml PO BID@0800,1730 [facility] Last Admin: 08/30/19 09:15 Dose: 30 ml Documented by: Aspirin (Asa -) 81 mg PO DAILY [facility] Last Admin: 08/30/19 09:15 Dose: 81 mg Documented by: Atorvastatin Calcium (Lipitor -) 80 mg PO HS [facility] Last Admin: 08/29/19 21:09 Dose: 80 mg Documented by: Enoxaparin Sodium (Lovenox -) 40 mg SQ DAILY [facility] Last Admin: 08/30/19 09:15 Dose: 40 mg Documented by: Sodium Chloride (Normal Saline -) 1,000 mls @ 83 mls/hr IV ASDIR [facility] Last Admin: 08/30/19 02:39 Dose: 83 mls/hr Documented by: Doxycycline Hyclate 100 mg/ (Dextrose) 100 mls @ 100 mls/hr IVPB BID [facility] Last Admin: 08/30/19 12:09 Dose: 100 mls/hr Documented by: Levothyroxine Sodium (Synthroid -) 50 mcg PO ACBK [facility] Last Admin: 08/30/19 07:06 Dose: 50 mcg Documented by: Losartan Potassium (Cozaar -) 50 mg PO DAILY [facility] Last Admin: 08/30/19 09:15 Dose: 50 mg Documented by: Mirtazapine (Remeron -) 7.5 mg PO [facility] Last Admin: 08/29/19 21:09 Dose: 7.5 mg Documented by: Pantoprazole Sodium (Protonix -) 40 mg PO ACBK [facility] Last Admin: 08/30/19 07:06 Dose: 40 mg Documented by: - Objective Vital Signs: Vital Signs Temperature 97.7 F 08/30/19 09:34 Pulse Rate 73 08/30/19 09:34 Respiratory Rate 16 08/30/19 09:34 Blood Pressure 147/87 08/30/19 09:34 O2 Sat by Pulse Oximetry (%) 99 08/30/19 09:34 Labs: CBC, BMP 08/30/19 07:15 08/30/19 06:00
--- NOTE | 2019-08-30 19:52 | PN ---
Teaching Attending Note Name of Resident: Jeovany Pennington ATTENDING PHYSICIAN STATEMENT I saw and evaluated the patient. I reviewed the resident's note and discussed the case with the resident. I agree with the resident's findings and plan as documented. SUBJECTIVE: not able to obtain hx as she is conmfused . not able to use training facilitator phone, n ot cooperative OBJECTIVE: NAd, awake , sitting on chair. . CV: RRR Lungs: CTAB xt : No edema on upper or lower extremities ASSESSMENT AND PLAN: 74 y/o lady with h/o dementia, HTN, HLD, Hypothyroidism, who presented with fatigue, weakness, and severe depression 1- Failure to thrive 2- Worsening dementia due to depression 3- hypokalemia 4- recent tick removal 5- H/o HTN 6- h/o hypothyroidism 7- Vit D insufficiency 8- possible small pericardial effusion : echo as out pt 9- hepatic and ovarian cysts : f/u as out pt plan : - per daughter , mom has improved but not completely at her base line . would expect her to take a long transition to base line - MRI reviewed. B12, TSH, normal . - switch to po doxy - cont home meds - cont Remeron 6.5 x 1 week then 15 mg daily - follow EEG report - start Vit D daily. - dc IVF in 12 hours - possible dc home tomorrow
[2019-08-30] MEDS ORDERED: POTASSIUM CHLORIDE TABS 20 MEQ TABLET.ER (FP) PO ONE (19:56)
--- NOTE | 2019-08-30 20:22 | PN ---
Physical Exam: SUBJECTIVE: No overnight events. Patient seen and examined. Denies CP, SOB, abd pain. Spoke with patient's other daughter. She said her mother is not at her baseline today. Her base line is that she is often forgetful and need reorienting, but always remembers her family members. She often cannot tell if she is [place] or the , but after you tell her she's in [place], she recognizes her mistake. OBJECTIVE: Vital Signs Period Temp Pulse Resp BP Sys/Montes Pulse Ox Last 24 Hr 97.7 F-98.7 F 65-83 16-18 146-163/81-99 97-99 GENERAL: The patient is awake, alert, and oriented to person. no acute distress. thin-appearing HEENT: NT/NC, No ptosis. MMM LUNGS: Breath sounds equal, clear to auscultation bilaterally, no wheezes, no crackles, no accessory muscle use. HEART: Regular rate and rhythm, S1, S2 without murmur, rub or gallop. ABDOMEN: Soft, nontender, nondistended, normoactive bowel sounds, no guarding, no rebound EXTREMITIES: 2+ pulses, warm, well-perfused, no edema. NEUROLOGICAL: gait not observed. PSYCH:depressed mood SKIN: Warm, dry, normal turgor, no rashes or lesions noted Laboratory Results - last 24 hr 08/29/19 08/30/19 08/30/19 21:16 06:00 07:09 WBC RBC Hgb Hct MCV MCH MCHC RDW Plt Count MPV Absolute Neuts (auto) Neutrophils % Lymphocytes % Monocytes % Eosinophils % Basophils % Nucleated RBC % Sodium 144 Potassium 3.4 L Chloride 109 H Carbon Dioxide 28 Anion Gap 7 L BUN 5.6 L Creatinine 0.7 Est GFR (CKD-EPI)AfAm 98.23 Est GFR (CKD-EPI)NonAf 84.75 POC Glucometer 90 78 Random Glucose 83 Calcium 9.5 Phosphorus 3.5 Magnesium 2.3 Total Bilirubin 1.0 AST 16 ALT 19 Alkaline Phosphatase 51 Total Protein 7.3 Albumin 3.9 08/30/19 07:15 WBC 4.0 RBC 4.22 Hgb 12.3 Hct 38.2 MCV 90.4 MCH 29.2 MCHC 32.3 RDW 13.0 Plt Count 194 MPV 9.3 Absolute Neuts (auto) 1.3 L Neutrophils % 31.2 L D Lymphocytes % 49.3 H Monocytes % 15.3 H D Eosinophils % 2.9 D Basophils % 1.3 Nucleated RBC % 0 Sodium Potassium Chloride Carbon Dioxide Anion Gap BUN Creatinine Est GFR (CKD-EPI)AfAm Est GFR (CKD-EPI)NonAf POC Glucometer Random Glucose Calcium Phosphorus Magnesium Total Bilirubin AST ALT Alkaline Phosphatase Total Protein Albumin Active Medications Generic Name Dose Route Start Last Admin Trade Name Freq PRN Reason Stop Dose Admin Acetaminophen 650 mg 08/28/19 01:40 08/29/19 20:52 Tylenol - PO 650 mg Q4H PRN Administration PAIN LEVEL 1 - 3 Amino Acids 30 ml 08/29/19 17:30 08/30/19 17:31 Prosource No Carb Liquid Pkt PO 30 ml BID@0800,1730 VALERIY Administration Aspirin 81 mg 08/28/19 10:00 08/30/19 09:15 Asa - PO 81 mg DAILY VALERIY Administration Atorvastatin Calcium 80 mg 08/28/19 22:00 08/29/19 21:09 Lipitor - PO 80 mg HS VALERIY Administration Cholecalciferol 1,000 unit 08/31/19 10:00 Vitamin D3 - PO DAILY VALERIY Doxycycline Hyclate 100 mg 08/31/19 10:00 Vibramycin - PO BID@1000,1800 VALERIY Enoxaparin Sodium 40 mg 08/28/19 10:00 08/30/19 09:15 Lovenox - SQ 40 mg DAILY VALERIY Administration Levothyroxine Sodium 50 mcg 08/28/19 07:00 08/30/19 07:06 Synthroid - PO 50 mcg ACBK VALERIY Administration Losartan Potassium 50 mg 08/28/19 10:00 08/30/19 09:15 Cozaar - PO 50 mg DAILY VALERIY Administration Mirtazapine 7.5 mg 08/29/19 22:00 08/29/19 21:09 Remeron - PO 7.5 mg HS VALERIY Administration Pantoprazole Sodium 40 mg 08/28/19 07:00 08/30/19 07:06 Protonix - PO 40 mg ACBK VALERIY Administration ASSESSMENT/PLAN: 74 YO F PMH Dementia, Hypothyroidism, HLD, HTN, presents with weakness & fatigue. #Acute Toxic Metabolic Encephalopathy 2/2 Lyme disease VS Grief Disorder/Depression -component of Tick was removed from pts Left thigh. Doxycycline was started on 08/25 prior to admission. c/w doxycycline for 21 days total. -ID c/s appreciated. IV doxycycline was switched to 100 mg PO BID. -lyme titers: neg (lyme screen IgG & IgM <0.91) -c/w Mirtazapine (Remeron) 7.5 mg PO HS X 1 week. Then, increase to 15 mg. -MRI: no infarct identified. Periventricular /subcortical chronic microvascular ischemic changes. Severe chronic microbleeds within parietal, occipital lobes b/l (right more than left). -Neuro c/s appreciated (Beatriz). F/u EEG to r/o status epilepticus #Failure to Thrive 2/2 hypothyroidism VS Grief Disorder/Depression -TSH WNL. See above regarding pts grief disorder/depression -lost 5% weight since last admission in July 2019 - dysphagia puree w/ ensure #HTN losartan (Cozaar) 50 mg PO daily #HLD -atorvastatin 80 mg PO HS #Hypothyroidism - c/w home levothyroxine 50 mcg PO #DVT PPX Lovenox 40mg Sq #FEN no IV fluids monitor lytes dysphagia puree w/ ensure Visit type - Emergency Visit Emergency Visit: Yes ED Registration Date: 08/27/19 Care time: The patient presented to the Emergency Department on the above date and was hospitalized for further evaluation of their emergent condition. - New Patient This patient is new to me today: No - Critical Care Critical Care patient: No - Medication Review Med list reviewed for High Risk Meds patients 65 and older: Yes ATTENDING PHYSICIAN STATEMENT I saw and evaluated the patient. I reviewed the resident's note and discussed the case with the resident. I agree with the resident's findings and plan as documented. SUBJECTIVE: OBJECTIVE: ASSESSMENT AND PLAN:
[2019-08-30] MEDS: MIRTAZAPINE 15 MG TABLET (FP) PO SCH (21:10)
[2019-08-30] MEDS: ATORVASTATIN CA 80 MG TABLET (FP) PO SCH (21:10)
--- NOTE | 2019-08-30 22:59 | PN ---
Progress Note (short form) - Note Progress Note: c Failure to thrive and lack of energy HPI 74 year old female history of HTN,HLD, Hypothyroidism, Dementia. Patient is estonian spekaing, history was taken with help of her daugher over the phone. Patient's sister few months ago, and she has history of ? dementia. Recently in july, she was admitted to [facility] for uti and confusion and she came back to her baseline. Last few days prior to hospital admission , she has been expressing desire to pass away. Patient denies any seiure like activity, or headhace , no fever or any flu like illness. Patient has been see by psych and started on antidepressant . She also have tick removed from her thigh and being investigated for tick bite. Patinet has no neurological symptomms suggestive of neuropathy, seizure or headhace. Patient was seen with her daughter at bedside, she appears brighter but confused Neurological EXAMINATION Alert , oriented x 1, she knows her name and she knows she is in hospital as per daughter she would not know even when she was alright afebrile, neck is supple vss eomi, puils reactive moving all ext sensation is normal ct head is unremarkable mri of brain unreamrkable Assessment/Plan 74 year old female history of HTN,HLD, Hypothyroidism,?Dementia . She came with failure to thrive and feeling sad and depressed and expressing desire to pass away, no evidence of headache, neck stiffness, or fever ct head is normal, clinically less likely to be meningitis, stroke or status epilepticus, mri ofbrain unremarkable. dementia with worsening depression. Thanking you so much Tj Henderson MD
[2019-08-31] MEDS: LEVOTHYROXINE NA 50 MCG TABLET (FP) PO SCH (06:09)
[2019-08-31] MEDS: PANTOPRAZOLE 40 MG TABLET PO SCH (06:09)
[2019-08-31 08:53] LABS: BASO % 1.1 % (0-2.0); EOS % 1.6 % (0-4.5); HEMOGLOBIN 12.3 GM/dL (10.7-15.3); LYMPH % 48.2 % (8-40); MCH 29.8 pg (25.7-33.7); MCHC 33.2 g/dl (32.0-36.0); MEAN CELL VOLUME 89.7 fl (80-96); MEAN PLT VOLUME 9.6 fl (7.5-11.1); MONO % 12.6 % (3.8-10.2); NEUT % 36.5 % (42.8-82.8); PLATELET COUNT 167 K/MM3 (134-434); RBC 4.12 M/mm3 (3.60-5.2); RDW 12.8 % (11.6-15.6); WHITE BLOOD COUNT 3.5 K/mm3 (4.0-10.0)
[2019-08-31 09:20] LABS: ALBUMIN 3.7 g/dl (3.4-5.0); BILIRUBIN,TOTAL 1.3 mg/dL (0.2-1); BLOOD UREA NITROGEN 9.2 mg/dL (7-18); CALCIUM 9.6 mg/dL (8.5-10.1); CREATININE 0.6 mg/dL (0.55-1.3); MAGNESIUM 2.3 mg/dL (1.8-2.4); PHOSPHOROUS 3.6 mg/dL (2.5-4.9); POTASSIUM 3.6 mmol/L (3.5-5.1); TOT PROT 6.8 g/dl (6.4-8.2)
[2019-08-31] MEDS ORDERED: DOXYCYCLINE HYCLATE 100 MG CAPSULE PO SCH (10:00)
[2019-08-31] MEDS ORDERED: CHOLECALCIFEROL (VIT D3) 1,000 UNIT (25 MCG) TABLET PO SCH (10:00)
--- NOTE | 2019-08-31 10:44 | PN ---
Progress Note, LIFE INSURANCE SALES AGENT - Note Progress Note: Selected Entries 08/30/19 08/30/19 08/30/19 06:00 09:34 15:41 Breakfast 50% Lunch 0 Temperature 98 F 97.7 F 98.1 F Blood Pressure 159/91 147/87 146/99 08/30/19 08/30/19 08/31/19 18:00 22:00 01:59 Breakfast Lunch Temperature 98.7 F 98.3 F 97.3 F L Blood Pressure 148/81 151/77 142/85 08/31/19 05:00 Breakfast Lunch Temperature 97.8 F Blood Pressure 134/69 Laboratory Tests 08/31/19 07:45 WBC 3.5 L Dementia with Depression Failure to thrive On Remeron which will hopefully improve appetite Encourage supplements and PO as accepted and desired, Plan is d/c home
[2019-08-31] MEDS: LOSARTAN POTASSIUM 50 MG TABLET (FP) PO SCH (11:33)
[2019-08-31] MEDS: ASPIRIN 81 MG CHEWABLE TABLETS PO SCH (11:33)
[2019-08-31] MEDS: AMINO ACIDS/PROTEIN HYDROLYS 30 ML LIQUID.PKT PO SCH (11:34)
[2019-08-31] MEDS: ENOXAPARIN NA (PORCINE) 40 MG/0.4 ML DISP.SYRIN SQ SCH (11:34)
--- NOTE | 2019-08-31 11:44 | PN ---
Progress Note, Physician History of Present Illness: stable still not eating well - Current Medication List Current Medications: Active Medications Acetaminophen (Tylenol -) 650 mg PO Q4H PRN PRN Reason: PAIN LEVEL 1 - 3 Last Admin: 08/29/19 20:52 Dose: 650 mg Documented by: Amino Acids (Prosource No Carb Liquid Pkt) 30 ml PO BID@0800,1730 [facility] Last Admin: 08/30/19 17:31 Dose: 30 ml Documented by: Aspirin (Asa -) 81 mg PO DAILY [facility] Last Admin: 08/30/19 09:15 Dose: 81 mg Documented by: Atorvastatin Calcium (Lipitor -) 80 mg PO [facility] Last Admin: 08/30/19 21:10 Dose: 80 mg Documented by: Cholecalciferol (Vitamin D3 -) 1,000 unit PO DAILY [facility] Enoxaparin Sodium (Lovenox -) 40 mg SQ DAILY [facility] Last Admin: 08/30/19 09:15 Dose: 40 mg Documented by: Levothyroxine Sodium (Synthroid -) 50 mcg PO BK [facility] Last Admin: 08/31/19 06:09 Dose: 50 mcg Documented by: Losartan Potassium (Cozaar -) 50 mg PO DAILY [facility] Last Admin: 08/30/19 09:15 Dose: 50 mg Documented by: Mirtazapine (Remeron -) 7.5 mg PO [facility] Last Admin: 08/30/19 21:10 Dose: 7.5 mg Documented by: Pantoprazole Sodium (Protonix -) 40 mg PO ACBK [facility] Last Admin: 08/31/19 06:09 Dose: 40 mg Documented by: - Objective Vital Signs: Vital Signs Temperature 97.8 F 08/31/19 05:00 Pulse Rate 79 08/31/19 05:00 Respiratory Rate 18 08/31/19 05:00 Blood Pressure 134/69 08/31/19 05:00 O2 Sat by Pulse Oximetry (%) 99 08/31/19 05:00 Constitutional: Yes: No Distress, Calm Cardiovascular: Yes: S1, S2 Respiratory: Yes: Regular, CTA Bilaterally Gastrointestinal: Yes: Normal Bowel Sounds, Soft Musculoskeletal: Yes: WNL Extremities: Yes: WNL Neurological: Yes: Alert, Oriented Psychiatric: Yes: Alert, Oriented Labs: CBC, BMP 08/31/19 07:45 08/31/19 07:45 Assessment/Plan Problem List - Problems (1) FTT (failure to thrive) in adult Code(s): R62.7 - ADULT FAILURE TO THRIVE (2) Altered mental status Code(s): R41.82 - ALTERED MENTAL STATUS, UNSPECIFIED Qualifiers: Altered mental status type: unspecified Qualified Code(s): R41.82 - Altered mental status, unspecified (3) HLD (hyperlipidemia) Code(s): E78.5 - HYPERLIPIDEMIA, UNSPECIFIED (4) HTN (hypertension) Code(s): I10 - ESSENTIAL (PRIMARY) HYPERTENSION (5) UTI (urinary tract infection) Code(s): N39.0 - URINARY TRACT INFECTION, SITE NOT SPECIFIED Assessment/Plan Failure to thrive AMS ? Tick bite Dementia hypothyroid HTN HLD Recent UTI plan results noted will stop doxy nutrition rest as per the team
--- NOTE | 2019-08-31 15:40 | PN ---
Teaching Attending Note Name of Resident: Yennifer Henson ATTENDING PHYSICIAN STATEMENT I saw and evaluated the patient. I reviewed the resident's note and discussed the case with the resident. I agree with the resident's findings and plan as documented. SUBJECTIVE: Not cooperative with [employer] worker phone. staff helped with translation . she denies pain, or SOB. she wants to go home and thinks she is in DR. she knows her name, thinks she is 37 y/o ,she knows she is in hospital OBJECTIVE: NAd, awake , sitting on chair. CV: RRR Lungs: CTAB Ext : No edema on upper or lower extremities Abd: soft, NT ASSESSMENT AND PLAN: 74 y/o lady with h/o dementia, HTN, HLD, Hypothyroidism, who presented with fatigue, weakness, and severe depression 1- Failure to thrive 2- Worsening dementia due to depression 3- hypokalemia 4- recent tick removal 5- H/o HTN 6- h/o hypothyroidism 7- Vit D insufficiency 8- possible small pericardial effusion : echo as out pt 9- hepatic and ovarian cysts : f/u as out pt plan : - mental status has improved, but might need time to completely return to base line or to a new base line given her dementia - dc oxy per ID - cont home meds - cont Remeron 7.5 x to complete one week then 15 mg daily - follow EEG report as out pt - cont Vit D daily. repeatlevel in 1 month - f/u on cycsts as out pt DC home with VNS . 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
[2019-08-31 15:50] VITALS: BP 131/74; PULSE 73; TEMP 98
--- NOTE | 2019-08-31 21:40 | DS ---
Physical Exam: SUBJECTIVE: No overnight events. Patient seen and examined. Denies CP, SOB, abd pain. Endorses feeling better. OBJECTIVE: Vital Signs Period Temp Pulse Resp BP Sys/Montes Pulse Ox Last 24 Hr 97.3 F-98.3 F 73-80 18-18 131-151/69-85 96-100 PHYSICAL EXAM GENERAL: The patient is awake, alert, and oriented to person. no acute distress. thin-appearing HEENT: NT/NC, No ptosis. MMM LUNGS: Breath sounds equal, clear to auscultation bilaterally, no wheezes, no crackles, no accessory muscle use. HEART: Regular rate and rhythm, S1, S2 without murmur, rub or gallop. ABDOMEN: Soft, nontender, nondistended, normoactive bowel sounds, no guarding, no rebound EXTREMITIES: 2+ pulses, warm, well-perfused, no edema. NEUROLOGICAL: gait not observed. PSYCH:depressed mood SKIN: Warm, dry, normal turgor, no rashes or lesions noted LABS Laboratory Results - last 24 hr 08/31/19 08/31/19 08/31/19 06:00 07:45 07:45 WBC 3.5 L RBC 4.12 Hgb 12.3 Hct 37.0 MCV 89.7 MCH 29.8 MCHC 33.2 RDW 12.8 Plt Count 167 MPV 9.6 Absolute Neuts (auto) 1.3 L Neutrophils % 36.5 L Lymphocytes % 48.2 H Monocytes % 12.6 H Eosinophils % 1.6 Basophils % 1.1 Nucleated RBC % 0 Sodium 143 Potassium 3.6 Chloride 109 H Carbon Dioxide 26 Anion Gap 8 BUN 9.2 Creatinine 0.6 Est GFR (CKD-EPI)AfAm 103.34 Est GFR (CKD-EPI)NonAf 89.16 POC Glucometer 100 Random Glucose 82 Calcium 9.6 Phosphorus 3.6 Magnesium 2.3 Total Bilirubin 1.3 H AST 16 ALT 18 Alkaline Phosphatase 48 Total Protein 6.8 Albumin 3.7 08/31/19 12:19 WBC RBC Hgb Hct MCV MCH MCHC RDW Plt Count MPV Absolute Neuts (auto) Neutrophils % Lymphocytes % Monocytes % Eosinophils % Basophils % Nucleated RBC % Sodium Potassium Chloride Carbon Dioxide Anion Gap BUN Creatinine Est GFR (CKD-EPI)AfAm Est GFR (CKD-EPI)NonAf POC Glucometer 94 Random Glucose Calcium Phosphorus Magnesium Total Bilirubin AST ALT Alkaline Phosphatase Total Protein Albumin HOSPITAL COURSE: 74 YO F PMH Dementia, Hypothyroidism, HLD, HTN, presents with weakness & fatigue. MRI did not reveal acute pathology. A component of a Tick was removed from pts Left thigh, so pt was started on Doxycycline for lyme disease. Lyme titers were neg (lyme screen IgG & IgM <0.91). Pt was found to have depression, so Mirtazapine (Remeron) was started. CTAP showed a 3.2 cm L ovarian cyst and small hepatic cysts (largest measuring 1.2cm); pt was advised to get ultrasound follow-up outpatient. CTAP also showed small pericardial effusion; advised to get follow-up echo outpatient. Pt is stable for discharge. Date of Admission:08/27/19 -MRI: no infarct identified. Periventricular /subcortical chronic microvascular ischemic changes. Severe chronic microbleeds within parietal, occipital lobes b/l (right more than left). Date of Discharge: 08/31/19 Minutes to complete discharge: 42 Discharge Summary Problems reviewed: Yes Reason For Visit: ALTERED MENTAL STATUS Condition: Improved - Instructions Diet, Activity, Other Instructions: You came into the hospital for not eating well and depression. You were monitored and treated with some fluids. You had an MRI of your brain which was negative. You are being treated for a tick that was found on your body. You are now stable to go home. Please continue your doxycycline 100 mg twice a day for 17 more days. Please start taking mirtazapine 7.5 mg once a day at bedtime for 5 more days. Then START taking mirtazapine 15 mg once a day at bedtime. Please start taking pantoprazole 40 mg once a day. Pleas start taking vitamin D3 (cholecalciferol) 1,000 units once a day. you need vitamin d level checked in a month Please continue your home medications as prescribed. You may continue to drink ensure to help you get nutrients. Please follow up with your primary care physician in 1 week to monitor your improvement. You may follow up with our [facility]. Please follow up with your neurologist, Dr. Henderson to monitor your dementia and to review your EEG oplease follow up with psychiatrist after discharge. you can see Dr. tyson If you have new, worsening, or concerning symptoms please return to the ED or call 911. - there is a smalll amount of fluid around your heart. You virgie an echo fr your heart in 1 month. please ask your primary MD to order - there are cysts on your liver and your ovary . you will need repeat ultra sound done in few month for monitoring. your primary MD can do that - take puree diet , with thin liquids with aspiration precautions Referrals: [facility] [Provider Group] Tj Henderson MD [Staff Physician] - 1 Week Mikki Nguyen MD [Staff Physician] - 1 Month Disposition: VNS/HOME HEALTH CARE - Home Medications Comprehensive Discharge Medication List: Ambulatory Orders Levothyroxine [Synthroid -] 50 mcg PO DAILY 01/25/17 Losartan Potassium 50 mg PO DAILY 07/24/19 Aspirin [ASA -] 81 mg PO DAILY #30 tab.chew 07/26/19 Atorvastatin Ca [Lipitor] 80 mg PO HS #30 tablet 07/26/19 Donepezil HCl [Aricept] 5 mg PO DAILY 08/27/19 Cholecalciferol (Vitamin D3) [Vitamin D3 -] 1,000 unit PO DAILY 30 Days #30 tab 08/31/19 Doxycycline Hyclate [Vibramycin] 100 mg PO BID #20 capsule 08/31/19 Mirtazapine [Remeron -] 7.5 mg PO HS #30 tablet 08/31/19 Pantoprazole Sodium [Protonix -] 40 mg PO DAILY #30 tablet.ec 08/31/19 This patient is new to me today: No Emergency Visit: Yes ED Registration Date: 08/27/19 Care time: The patient presented to the Emergency Department on the above date and was hospitalized for further evaluation of their emergent condition. Critical Care patient: No - Discharge Referral Referred to [facility] Med [facility].C.: No ATTENDING PHYSICIAN STATEMENT I saw and evaluated the patient. I reviewed the resident's note and discussed the case with the resident. I agree with the resident's findings and plan as documented. SUBJECTIVE: OBJECTIVE: ASSESSMENT AND PLAN:
--- NOTE | 2019-08-31 22:59 | PN ---
Progress Note (short form) - Note Progress Note: 74 year old female history of HTN,HLD, Hypothyroidism, Dementia. Patient is [place] spekaing, history was taken with help of her daugher over the phone. Patient's sister few months ago, and she has history of ? dementia. Recently in july, she was [facility]i and confusion and she came back to her baseline. Last few days prior to hospital admission , she has been expressing desire to pass away. Patient denies any seiure like activity, or headhace , no fever or any flu like illness. Patient has been see by psych and started on antidepressant . She also have tick removed from her thigh and being investigated for tick bite. Liz has no neurological symptomms suggestive of neuropathy, seizure or headhace. No new complain Neurological EXAMINATION Alert , oriented x 1, she knows her name and she knows she is in hospital as per daughter she would not know even when she was alright afebrile, neck is supple vss eomi, puils reactive moving all ext sensation is normal ct head is unremarkable mri of brain unreamrkable eeg showed encephalopathic changes , no seizure activity Assessment/Plan 74 year old female history of HTN,HLD, Hypothyroidism,?Dementia . She came with failure to thrive and feeling sad and depressed and expressing desire to pass away, no evidence of headache, neck stiffness, or fever ct head is normal, clinically less likely to be meningitis, stroke or status epilepticus, mri ofbrain unremarkable. dementia with worsening depression. continue antidepressant and supportive care Thanking you so much Tj Henderson MD
== END 2019-08-31 17:12 | disposition home health service (06) | DRG 881 ==
LOC: JER 19:35 → JERBED 22:19 → J5S 08-28 22:17
PROVIDERS: ADMIT Internal Medicine; ATTEND Internal Medicine
DX: F32.9 Major depressive disorder, single episode, unspecified (principal); Z68.1 Body mass index [BMI] 19.9 or less, adult; R64 Cachexia; I31.3 Pericardial effusion (noninflammatory); E03.9 Hypothyroidism, unspecified; R62.7 Adult failure to thrive; E87.5 Hyperkalemia; I10 Essential (primary) hypertension; N83.209 Unspecified ovarian cyst, unspecified side; K76.89 Other specified diseases of liver; S80.869A Insect bite (nonvenomous), unspecified lower leg, initial encounter; F03.90 Unspecified dementia, unspecified severity, without behavioral disturbance, psychotic disturbance, mood disturbance, and anxiety; R41.82 Altered mental status, unspecified; E87.6 Hypokalemia; E55.9 Vitamin D deficiency, unspecified
CPT/HCPCS: 36415; 70450-TC; 70551-TC; 71045-TC-FY; 74176-TC; 80048; 80053; 81003; 82306; 82550; 82607; 82728; 82746; 82962; 83690; 83735; 84100; 84443; 84484; 85025; 85027; 86618; 87086; 93005; 93010; 95816; 97116-GP; 97161-GP; 99285-25; U0003

== ENCOUNTER 2021-12-20 22:08 | Inpatient (IN) | payer OTHER ==
[2021-12-20 22:42] VITALS: BMI 18.5
[2021-12-20 23:44] LABS: CHLORIDE 108 mmol/L (98-107); SODIUM 140 mmol/L (136-145)
[2021-12-20 23:46] LABS: CALCIUM 9.1 mg/dL (8.5-10.1)
[2021-12-20 23:47] LABS: CO2 29 mmol/L (21-32); MAGNESIUM 2.4 mg/dL (1.8-2.4)
[2021-12-20 23:48] LABS: ALBUMIN 3.4 g/dl (3.4-5.0); BLOOD UREA NITROGEN 13.6 mg/dL (7-18); GLUCOSE,RANDOM 101 mg/dL (74-106)
[2021-12-20 23:50] LABS: CREATININE 0.9 mg/dL (0.55-1.3); SGOT/AST 52 U/L (15-37); SGPT/ALT 17 U/L (13-61)
[2021-12-20 23:51] LABS: CHOLESTEROL 172 mg/dL (50-200); TRIGLYCERIDES 74 mg/dL (0-150)
[2021-12-20 23:52] LABS: TOT PROT 7.3 g/dl (6.4-8.2)
[2021-12-20 23:53] LABS: BILIRUBIN,TOTAL 0.3 mg/dL (0.2-1); HDL CHOLESTEROL 60 mg/dL (40-60); LDL CHOLESTEROL (ONLY SJRH) 109 mg/dL (5-100)
[2021-12-20 23:54] LABS: ALK PHOS 64 U/L (45-117); ANION GAP 3 MMOL/L (8-16)
[2021-12-20] MEDS ORDERED: ACETAMINOPHEN 1000 MG/100 ML BAG IVPB ONE (23:58)
[2021-12-21] MEDS ORDERED: ACETAMINOPHEN INJECTION 100 ML IVPB ONE (00:01)
[2021-12-21 00:08] LABS: BASO % 0.8 % (0-2.0); EOS % 0.6 % (0-4.5); HEMATOCRIT 34.7 % (32.4-45.2); HEMOGLOBIN 11.6 GM/dL (10.7-15.3); MCH 29.8 pg (25.7-33.7); MCHC 33.3 g/dl (32.0-36.0); MEAN CELL VOLUME 89.4 fl (80-96); MEAN PLT VOLUME 8.5 fl (7.5-11.1); MONO % 7.3 % (3.8-10.2); NEUT % 74.3 % (42.8-82.8); PLATELET COUNT 199 10^3/uL (134-434); RBC 3.88 M/mm3 (3.60-5.2); RDW 13.6 % (11.6-15.6); WHITE BLOOD COUNT 7.5 K/mm3 (4.0-10.0)
[2021-12-21 00:16] LABS: VENOUS BASE EXCESS 0.7 mmol/L (-2-2); VENOUS O2 SATURATION 19.2 % (70-80); VENOUS PCO2 62.8 mmHg (38-52); VENOUS PH 7.278 (7.310-7.410)
[2021-12-21] MEDS ORDERED: SODIUM CHLORIDE 1,000 ML IV SCH (01:30)
[2021-12-21 01:32] LABS: INR 1.09 (0.83-1.09); PROTHROMBIN TIME (PATIENT) 12.6 SEC (9.7-13.0)
[2021-12-21 01:34] LABS: ACTIVATED PTT 27.6 SECONDS (25.2-36.5)
[2021-12-21 02:11] LABS: CALCIUM 9.4 mg/dL (8.5-10.1)
[2021-12-21 02:12] LABS: ALBUMIN 3.7 g/dl (3.4-5.0); BLOOD UREA NITROGEN 13.5 mg/dL (7-18)
[2021-12-21 02:15] LABS: CREATININE 0.8 mg/dL (0.55-1.3)
[2021-12-21 02:17] LABS: BILIRUBIN,TOTAL 0.4 mg/dL (0.2-1); TOT PROT 7.1 g/dl (6.4-8.2)
[2021-12-21 02:25] LABS: EPI CELLS 31 /uL (0-25.1); HYALINE CASTS 11 /uL (0-3.1); PH,URINE 6.5 (5.0-8.0); URINE APPEARANCE CLOUDY; URINE BACTERIA 829 /uL (0-1359); URINE BILIRUBIN NEGATIVE (NEGATIVE); URINE COLOR YELLOW; URINE GLUCOSE (UA) NEGATIVE (NEGATIVE); URINE KETONE NEGATIVE (NEGATIVE); URINE LEUK ESTERASE 1+ (NEGATIVE); URINE NITRITE NEGATIVE (NEGATIVE); URINE PROTEIN TRACE (NEGATIVE); URINE WBC 244 /uL (0-25.8)
[2021-12-21] MEDS ORDERED: LEVOTHYROXINE NA 50 MCG TABLET (FP) PO SCH (07:00)
[2021-12-21 07:32] LABS: BASO % 0.5 % (0-2.0); EOS % 0.3 % (0-4.5); HEMATOCRIT 33.4 % (32.4-45.2); HEMOGLOBIN 10.9 GM/dL (10.7-15.3); LYMPH % 23.3 % (8-40); MCHC 32.7 g/dl (32.0-36.0); MEAN CELL VOLUME 88.7 fl (80-96); MEAN PLT VOLUME 9.3 fl (7.5-11.1); MONO % 6.6 % (3.8-10.2); NEUT % 69.3 % (42.8-82.8); PLATELET COUNT 199 10^3/uL (134-434); RBC 3.77 M/mm3 (3.60-5.2); RDW 13.5 % (11.6-15.6); WHITE BLOOD COUNT 7.8 K/mm3 (4.0-10.0)
[2021-12-21 07:54] LABS: CALCIUM 9.2 mg/dL (8.5-10.1)
[2021-12-21 07:55] LABS: ALBUMIN 3.2 g/dl (3.4-5.0); BLOOD UREA NITROGEN 11.8 mg/dL (7-18); MAGNESIUM 2.2 mg/dL (1.8-2.4)
[2021-12-21 07:58] LABS: CREATININE 0.6 mg/dL (0.55-1.3); PHOSPHOROUS 3.1 mg/dL (2.5-4.9)
[2021-12-21 07:59] LABS: BILIRUBIN,TOTAL 0.2 mg/dL (0.2-1); TOT PROT 6.3 g/dl (6.4-8.2)
[2021-12-21] MEDS ORDERED: PANTOPRAZOLE 40 MG TABLET PO ONE (09:01)
[2021-12-21] MEDS ORDERED: ENOXAPARIN NA (PORCINE) 40 MG/0.4 ML DISP.SYRIN SQ ONE (09:02)
[2021-12-21] MEDS ORDERED: LEVOTHYROXINE NA 50 MCG TABLET (FP) ONE (09:02)
[2021-12-21] MEDS ORDERED: risperiDONE 0.5 MG TABLET ONE (09:02)
[2021-12-21] MEDS ORDERED: ASPIRIN 81 MG CHEWABLE TABLETS ONE (09:02)
[2021-12-21] MEDS ORDERED: POLYETHYLENE GLYCOL (HEALTHYLAX) 3350 17 GM PACKET ONE (09:53)
[2021-12-21] MEDS ORDERED: ENOXAPARIN NA (PORCINE) 40 MG/0.4 ML DISP.SYRIN SQ SCH (10:00)
[2021-12-21] MEDS ORDERED: ASPIRIN 81 MG CHEWABLE TABLETS PO SCH (10:00)
[2021-12-21] MEDS ORDERED: risperiDONE 0.5 MG TABLET PO SCH (10:00)
[2021-12-21] MEDS ORDERED: PANTOPRAZOLE 40 MG TABLET PO SCH (10:00)
[2021-12-21] MEDS: POLYETHYLENE GLYCOL (HEALTHYLAX) 3350 17 GM PACKET PO SCH ×2 (11:00→13:10)
[2021-12-21 11:49] VITALS: RESP 16
[2021-12-21 16:26] VITALS: TEMP 98.3
[2021-12-21 18:53] VITALS: BP 124/78; PULSE 88
[2021-12-21] MEDS ORDERED: MIRTAZAPINE 15 MG TABLET (FP) PO SCH (22:00)
[2021-12-21] MEDS ORDERED: DONEPEZIL HCL 10 MG TABLET (FP) PO SCH (22:00)
[2021-12-21] MEDS ORDERED: DOCUSATE SODIUM 100 MG CAPSULE (FP) PO SCH (22:00)
== END 2021-12-21 18:56 | disposition left against medical advice (07) | DRG 690 ==
LOC: JER 22:08 → JERBED 12-21 00:07
PROVIDERS: ADMIT Internal Medicine; ATTEND Internal Medicine
DX: N39.0 Urinary tract infection, site not specified (principal); R55 Syncope and collapse; I10 Essential (primary) hypertension; E03.9 Hypothyroidism, unspecified; F03.90 Unspecified dementia, unspecified severity, without behavioral disturbance, psychotic disturbance, mood disturbance, and anxiety; E78.5 Hyperlipidemia, unspecified; Z53.29 Procedure and treatment not carried out because of patient's decision for other reasons
CPT/HCPCS: 0241U-QW; 36415; 70450-TC; 71045-TC-FY; 72125-TC; 74019-TC-FY; 80053; 80061; 81003; 82803; 83036; 83735; 84100; 84443; 84484; 85025; 85610; 85730; 86850; 86900; 86901; 87086; 87186; 93005; 93010; 99285-25